=== PATIENT | male | born 1970 | race Caucasian/White ===

== ENCOUNTER → 2018-01-26 | Outpatient (CLI) | payer OTHER ==
[~2018-01-26] MED LIST: BUSP-8 PO; CARI350T28 PO; DIPH-416 PO; LANS30CA12 PO; METO50TA16 PO; NTRGSL/4 UT; PROM12.529 PO; TRAZ100T29 PO; VNTHFA/IN INH
[2018-01-26 10:23] LABS: BASO % 0.3 %; BASO ABS # 0.02 K/uL (0-0.2); EOS % 1.4 %; EOS ABS # 0.11 K/uL (0-0.5); HEMATOCRIT 42.9 % (42-52); HEMOGLOBIN 14.2 g/dL (14.0-18.0); IG# 0.01 K/uL (0.00-0.02); LYMPH % 34.3 %; LYMPH ABS # 2.64 K/uL (1.2-3.4); MEAN CELL VOLUME 93.5 fL (80-100); MEAN CORPUSCULAR HEMOGLOBIN 30.9 pg (25-34); MEAN CORPUSCULAR HGB CONC 33.1 g/dl (32-36); MEAN PLATELET VOLUME 9.9 fL (7.4-10.4); MONO % 6.1 %; MONO ABS # 0.47 K/uL (0.11-0.59); NEUT % 57.8 %; NEUT ABS # 4.44 K/uL (1.4-6.5); PLATELET COUNT 171 K/uL (130-400); RED CELL DISTRIBUTION WIDTH CV 13.4 % (11.5-14.5); WHITE BLOOD COUNT 7.69 K/uL (4.8-10.8)
[2018-01-26 10:30] LABS: BLOOD UREA NITROGEN 16 mg/dl (7-18); CALCIUM 8.6 mg/dl (8.5-10.1); CARBON DIOXIDE 29 mmol/L (21-32); CREATININE 0.95 mg/dl (0.60-1.40); GLUCOSE 110 mg/dl (70-99); POTASSIUM 3.8 mmol/L (3.5-5.1); SODIUM 139 mmol/L (136-145)
[2018-01-26 10:32] LABS: PTT PATIENT 28.6 SECONDS (21.0-31.0)
== END | disposition home or self-care (01) ==
LOC: C.CPL 09:20
PROVIDERS: ATTEND Orthopaedic Surgery
DX: Z01.810 Encounter for preprocedural cardiovascular examination (principal); Z01.812 Encounter for preprocedural laboratory examination

== ENCOUNTER 2019-08-21 04:47 | Inpatient (IN) ==
--- NOTE | 2019-08-04 13:42 | PAT Medication Instructions ---
Medication Instructions Date of Service August 04, 2019 Home Medications Medication Instructions Recorded tramadol 50 mg tablet 50 mg PO BID PRN #30 tab 06/06/19 albuterol sulfate 2 puff INHALATION Q4H PRN carisoprodol 350 mg PO TID PRN lansoprazole 30 mg PO BID metoprolol tartrate 50 mg PO QAM nitroglycerin [Nitrostat] 1 tab SUBLINGUAL UD PRN promethazine 12.5 mg PO Q6H PRN trazodone 200 mg PO HS tramadol 50 mg tablet 50 mg PO BID PRN DO NOT take the morning of surgery carisoprodol 350 mg PO TID PRN Take morning of surgery With a small sip of water, OTHERWISE NOTHING TO EAT OR DRINK AFTER MIDNIGHT: albuterol sulfate 2 puff INHALATION Q4H PRN (if needed, and bring with you to the hospital on the day of surgery) lansoprazole 30 mg PO BID metoprolol tartrate 50 mg PO QAM nitroglycerin [Nitrostat] 1 tab SUBLINGUAL UD PRN (if needed) promethazine 12.5 mg PO Q6H PRN (if needed) tramadol 50 mg tablet 50 mg PO BID PRN (if needed, may be taken up to four hours before surgery) Take evening before surgery albuterol sulfate 2 puff INHALATION Q4H PRN (if needed) carisoprodol 350 mg PO TID PRN (if needed) lansoprazole 30 mg PO BID nitroglycerin [Nitrostat] 1 tab SUBLINGUAL UD PRN (if needed) promethazine 12.5 mg PO Q6H PRN (if needed) trazodone 200 mg PO HS tramadol 50 mg tablet 50 mg PO BID PRN (if needed) Other Notes If you have any questions please call us at [phone] or [phone] or [phone] or [phone]
--- NOTE | 2019-08-07 13:00 | Anesthesiology Consultation ---
Date of Service August 07, 2019 Assessment & Plan (1) Encounter for pre-operative examination: PT REPORTS SIGNIFICANT MYALGIAS WITH PAST SURGERIES, POSSIBLY R/T SUCC. IF SUCC NOT USED, NO MYALGIAS. NEVER FORMALLY TESTED FOR PSEUDOCHOLINESTERASE DEFICIENCY. Chart Review Chart Review: Acceptable Risk for Surgery and Patient seen in Pre Admission Testing Teaching & Discussion Instructed NPO after midnight before surgery, except medications with 15 cc of water. Medication instructions provided according to the PAT guidelines. History Surgery Operation Date: 09/15/19 13:25 Proposed Procedures p Right Total Shoulder Arthroplasty - Adam Orozco, Height/Weight Height: 5 ft 4 in Weight: 113.6 kg Allergies Allergy/AdvReac Type Severity Reaction Status Date / Time mirtazapine AdvReac Severe NIGHTMARE Verified 07/31/19 11:17 NSAIDS (Non-Steroidal AdvReac Severe H/O KIDNEY Verified 07/31/19 11:17 Anti-Inflamma FAILURE quetiapine AdvReac Severe WEIGHT GAIN Verified 07/31/19 11:17 succinylcholine AdvReac Severe MUSCLE PAIN Verified 07/31/19 11:17 Medications Home Medications Medication Instructions Recorded Confirmed Last Taken albuterol sulfate 2 puff INHALATION Q4H PRN #0 01/25/18 07/31/19 Unknown carisoprodol 350 mg PO TID PRN #0 tab 01/25/18 07/31/19 03/03/18 12:00 lansoprazole 30 mg PO BID #0 cap 01/25/18 07/31/19 03/05/18 07:58 metoprolol tartrate 50 mg PO QAM #0 tab 01/25/18 07/31/19 03/05/18 07:58 nitroglycerin [Nitrostat] 1 tab SUBLINGUAL UD PRN #0 btl 01/25/18 07/31/19 Unknown promethazine 12.5 mg PO Q6H PRN #0 tab 01/25/18 07/31/19 03/05/18 07:57 trazodone 200 mg PO HS #0 tab 01/25/18 07/31/19 03/04/18 20:40 tramadol 50 mg tablet 50 mg PO BID PRN #30 tab 06/06/19 07/31/19 Unknown Past Medical History Medical History Anxiety Asthma Possible allergic asthma, has albuterol inhaler for PRN use, only using in summer when allergens present. Barretts esophagus Blindness RIGHT EYE Chronic back pain Chronic kidney disease Nearly normal function since [facility] 2011 Depression Esophageal varices Not documented in hx from GI notes in [facility] GERD (gastroesophageal reflux disease) History of blood transfusion 2/2 hematuria History of hemodialysis With [facility] 7yrs ago History of kidney stones Hx of renal failure 2/2 NSAID abuse, ~ 7 yrs ago. Hyperlipidemia Hypertension Osteoarthritis Peripheral neuropathy LEGS GET NUMBNESS IN LEGS Pre-diabetes Scoliosis Exercise / Class Metabolic Activity II 4-5 Yardwork/Stairs/Walk up hill (Denies CP or SOB with yardwork, 1 FOS, is active at home) Past Family History Family History Other Family history of diabetes mellitus Past Surgical History Surgical History History of anesthesia reaction SUCCICHOLINE->MUSCLE PAIN History of arthroscopy RIGHT KNEE & BILATERAL SHOULDERS History of cardiac cath 2008. Done for angina symptoms. Cath showed normal coronaries with normal LV function. History of cholecystectomy History of colonoscopy History of cystoscopy History of esophagogastroduodenoscopy (EGD) History of left shoulder replacement History of nasal septoplasty Past Anesthesia History No Family Hx of Anesthesia Complications and Pseudocholinesterase Deficiency (POSSIBLE) PT REPORTS SIGNIFICANT MYALGIAS WITH PAST SURGERIES. IF SUC NOT USED, NO MYALGIAS. NEVER FORMALLY TESTED FOR PSEUDOCHOLINESTERASE DEFICIENCY. History of PONV No Hx of PONV and No Hx of Motion Sickness Social History Smoking Status: Never smoker tobacco type: smokeless tobacco (1 can/day x 36 years) Do You Dip or Chew Tobacco: Yes (CHEWS 1 CAN PER DAY - NO CHEWING DOS) Hx Alcohol Use: Yes Alcohol type: beer alcohol intake frequency: a few times a month (if that) Hx Substance Use: No Review of Systems Pt denies any recent chest pain, shortness of breath, palpitations, cough, fever or URI. Physical Exam Vital Signs BP: 109/77 P: 64bpm SPO2: 97% RA T: 97.3 F R: 20 Constitutional + obese ENMT Mouth: + dentures (bottom only), + edentulous and + macroglossia Thyromental Distance: < 3.5 Finger Breadths (3) Mallampati Class: II Neck + short neck, + thick neck and + limited neck extension (reports some pain with full extension) Respiratory normal respiratory effort Auscultation: lungs clear to auscultation bilaterally Cardiovascular Rate/Rhythm: regular rate and regular rhythm Heart Sounds: no murmur Vessels: no carotid bruit Testing Laboratory Results 08/07/19 13:20 08/07/19 13:20 PT 10.2 Seconds (9.0-12.0) 08/07/19 13:20 INR 1.0 (0.9-1.1) 08/07/19 13:20 APTT 26.9 Seconds (21.0-31.0) 08/07/19 13:20 Hemoglobin A1c 5.7 % (4.5-5.6) H 08/07/19 13:20 Blood Type O Positive 08/07/19 13:20 Antibody Screen NEGATIVE 08/07/19 13:20 Electrocardiogram Date: 10/17/18 Findings: + SB @ (55) Low voltage QRS, no significant change from 04/11/17 EKG. Chest X-Ray Date: 08/07/19 Findings: + NAD Cardiac Catheterization Date: 07/24/08 Findings: + normal
--- NOTE | 2019-08-07 13:36 | XRay Report ---
XR chest Pre-admission PA/Lat CLINICAL HISTORY: Preoperative chest COMPARISON STUDY: No previous studies for comparison. FINDINGS: The cardiac and mediastinal contours are normal. There is no evidence of focal pulmonary co nsolidation. There is no evidence of failure. No pleural effusions are visualized.[There is a small b and of subsegmental atelectasis/scarring at the left lung base. There are postsurgical changes of a l eft shoulder arthroplasty IMPRESSION: No active disease in the chest. ACT 112: Negative or not required by law. Electronically signed by: Stef Bui M.D. 08/07/2019 1:35 PM
[2019-08-07 14:12] LABS: Basophils # (auto) 0.03 K/uL (0-0.2); Basophils % (auto) 0.4 %; Eosinophils % (auto) 2.5 %; Hematocrit (blood only) 43.5 % (42-52); Hemoglobin 14.1 g/dL (14.0-18.0); Immature Granulocytes # (auto) 0.02 K/uL (0.00-0.02); Immature Granulocytes % (auto) 0.3 %; Lymphocytes # (auto) 2.44 K/uL (1.2-3.4); Lymphocytes % (auto) 30.5 %; Mean Corpuscular Hemoglobin 31.3 pg (25-34); Mean Corpuscular Hgb Conc 32.4 g/dL (32-36); Mean Corpuscular Volume 96.7 fL (80-100); Mean Platelet Volume 10.3 fL (7.4-10.4); Monocytes # (auto) 0.39 K/uL (0.11-0.59); Monocytes % (auto) 4.9 %; Neutrophils # (auto) 4.92 K/uL (1.4-6.5); Neutrophils % (auto) 61.4 %; Platelet Count 182 K/uL (130-400); RDW Coefficient of Variation 14.1 % (11.5-14.5); RDW Standard Deviation 49.9 fL (36.4-46.3)
[2019-08-07 14:21] LABS: BUN Creatinine Ratio 17.4 (10-20); Calcium 8.5 mg/dl (8.5-10.1); Creatinine Clr Calc Pharmacy 101.5 ml/min; Est GFR (African American) 99.8; Est GFR (Non-African American) 86.1; Estimated Average Glucose 117 mg/dl; Hemoglobin A1C 5.7 % (4.5-5.6); Potassium 4.2 mmol/L (3.5-5.1)
[2019-08-07 14:31] LABS: Partial Thromboplastin Time 26.9 Seconds (21.0-31.0); Prothrombin Time 10.2 Seconds (9.0-12.0)
--- NOTE | 2019-08-17 08:17 | History & Physical Report ---
Date of Service August 17, 2019 Assessment & Plan (1) Osteoarthritis of right shoulder: We will proceed with a right total shoulder arthroplasty. Postoperatively he will be kept overnight in the hospital for postoperative medical management. He plans to use [facility] upon discharge. Present on Admission?: Yes History of Present Illness Chief Complaint: Primary osteoarthritis of the right shoulder Primary Care Provider: Denis Alves MD Abel is a pleasant 49-year-old male who has been dealing with chronic increasing right shoulder pain. I did a left shoulder arthroplasty on him over a year ago. He has done very well with that. Unfortunately he has been dealing with a lot of right shoulder pain. The x-rays do not look too bad, but he does have a history of a right shoulder arthroscopy done by Dr. Garza in the past. I have the intraoperative pictures and they show advanced arthritis of the humeral head. After failing conservative treatment, he has elected to proceed with a right total shoulder arthroplasty. Allergies Allergy/AdvReac Type Severity Reaction Status Date / Time mirtazapine AdvReac Severe NIGHTMARE Verified 07/31/19 11:17 NSAIDS (Non-Steroidal AdvReac Severe H/O KIDNEY Verified 07/31/19 11:17 Anti-Inflamma FAILURE quetiapine AdvReac Severe WEIGHT GAIN Verified 07/31/19 11:17 succinylcholine AdvReac Severe MUSCLE PAIN Verified 07/31/19 11:17 Home Medications Home Medications Medication Instructions Recorded Confirmed Type albuterol sulfate 2 puff INHALATION Q4H PRN #0 01/25/18 07/31/19 History carisoprodol 350 mg PO TID PRN #0 tab 01/25/18 07/31/19 History lansoprazole 30 mg PO BID #0 cap 01/25/18 07/31/19 History metoprolol tartrate 50 mg PO QAM #0 tab 01/25/18 07/31/19 History nitroglycerin [Nitrostat] 1 tab SUBLINGUAL UD PRN #0 btl 01/25/18 07/31/19 History promethazine 12.5 mg PO Q6H PRN #0 tab 01/25/18 07/31/19 History trazodone 200 mg PO HS #0 tab 01/25/18 07/31/19 History tramadol 50 mg tablet 50 mg PO BID PRN #30 tab 06/06/19 07/31/19 Rx Past Med/Surg History Medical History Anxiety Asthma Possible allergic asthma, has albuterol inhaler for PRN use, only using in summer when allergens present. Barretts esophagus Blindness RIGHT EYE Chronic back pain Chronic kidney disease Nearly normal function since [facility] 2011 Depression Esophageal varices Not documented in hx from GI notes in [facility] GERD (gastroesophageal reflux disease) History of blood transfusion 2/2 hematuria History of hemodialysis With [facility] 7yrs ago History of kidney stones Hx of renal failure 2/2 NSAID abuse, ~ 7 yrs ago. Hyperlipidemia Hypertension Osteoarthritis Peripheral neuropathy LEGS GET NUMBNESS IN LEGS Pre-diabetes Scoliosis Surgical History History of anesthesia reaction SUCCICHOLINE->MUSCLE PAIN History of arthroscopy RIGHT KNEE & BILATERAL SHOULDERS History of cardiac cath 2008. Done for angina symptoms. Cath showed normal coronaries with normal LV function. History of cholecystectomy History of colonoscopy History of cystoscopy History of esophagogastroduodenoscopy (EGD) History of left shoulder replacement History of nasal septoplasty Family History Other Family history of diabetes mellitus Social History Preferred Language: Irish Communication Ability: Effective Beliefs That Will Affect Care: None marital status: Single Current Living Situation: Family Feels Safe at Home: Yes Safety Concerns: Feels Safe At This Time Smoking Status: Never smoker Tobacco Type: smokeless tobacco (1 can/day x 36 years) ; Do You Dip or Chew Tobacco: Yes (CHEWS 1 CAN PER DAY - NO CHEWING DOS) ; Second Hand Exposure: No ; Hx Alcohol Use: Yes Alcohol type: beer Hx Substance Use: No Review of Systems All systems reviewed & are unremarkable except as noted in HPI & below Physical Exam Constitutional: WD/WN, vitals as above Eyes: PERRL, conjunctivae normal, anicteric sclerae ENMT: external ear and nose normal, oropharynx normal Neck: trachea midline, no thyromegaly Respiratory: normal respiratory effort Cardiovascular: RRR, no murmur, no edema Gastrointestinal (Abdomen): normal bowel sounds, soft, nontender, no hepatosplenomegaly Musculoskeletal: Physical examination of the right shoulder reveals decreased range of motion and crepitis throughout. There is good strength with full can testing and external rotation. There is tenderness palpation along the anterior glenohumeral joint line. The right upper extremity is neurovascularly intact. Psychiatric: A+Ox3, euthymic affect Results & Data Diagnostic Findings Radiographs of the right shoulder show very minimal osteoarthritis. Intraoperative pictures of the right shoulder do show grade 4 chondral loss on the humeral head.
[2019-08-21] MEDS ORDERED: LR 15ML/HR IV SCH (06:00)
[2019-08-21] MEDS ORDERED: BUPIVACAINE 0.5 % 5 MG/1 ML PF 10ML VIAL ONE (06:18)
[2019-08-21] MEDS ORDERED: PROPOFOL IV EMULSION 10 MG/ML 20 ML VIAL IV ONE (06:36)
[2019-08-21] MEDS ORDERED: ONDANSETRON INJ 2 MG/ML 2 ML VIAL ONE (06:36)
[2019-08-21] MEDS ORDERED: DEXAMETHASONE SOD INJ 4 MG/ML VIAL ONE (06:36)
[2019-08-21] MEDS ORDERED: fentaNYL citrate 100 MCG/2 ML VIAL ONE (06:36)
[2019-08-21] MEDS ORDERED: ROCURONIUM BROMIDE 10 MG/ML 5 ML VIAL ONE (06:36)
[2019-08-21] MEDS ORDERED: LIDOCAINE HCL 2% 2 ML VIAL/AMP(20MG/ML) INFIL ONE (06:36)
[2019-08-21] MEDS ORDERED: MIDAZOLAM HCL 1 MG/ML 2ML VIAL ONE (06:37)
[2019-08-21] MEDS ORDERED: TRANEXAMIC ACID / 0.7% NACL 1,000 MG/100 ML BAG IV STA ×2 (06:38→06:48)
[2019-08-21] MEDS: TRANEXAMIC ACID / 0.7% NACL 1,000 MG/100 ML BAG IV STA ×2 (06:44→08:32)
[2019-08-21] MEDS ORDERED: CEFAZOLIN 2000MG 2,000 MG/15 ML SYR IV SCH (06:45)
--- NOTE | 2019-08-21 06:45 | History & Physical Bridge Note ---
Date of Service August 21, 2019 History & Physical Bridge Note I have examined the patient, reviewed the History & Physical and in the interval since the performance of the History & Physical I have noted the following changes of clinical significance: no changes noted
[2019-08-21] MEDS ORDERED: ONDANSETRON INJ 2 MG/ML 2 ML VIAL IV PRN ×2 (06:53→10:24)
[2019-08-21] MEDS ORDERED: ePHEDrine sulfate 50 MG/ML AMP IV PRN (06:53)
[2019-08-21] MEDS ORDERED: ATROPINE SULFATE 0.1 MG/ML 10ML SYR IV PRN (06:53)
[2019-08-21] MEDS ORDERED: NEOSTIGMINE METHYLSULFATE 5 MG/5 ML SYR ONE (07:45)
[2019-08-21] MEDS ORDERED: GLYCOPYRROLATE 0.2 MG/ML VIAL ONE (07:45)
--- NOTE | 2019-08-21 08:52 | Operative Report ---
PG Post Operative Report Pre & Post Diagnosis Operation Date: 08/21/19 07:15 Pre-Op Diagnosis: RIGHT SHOULDER DEGENERATIVE JOINT DISEASE with long head of biceps tendinopathy Post-Op Diagnosis: RIGHT SHOULDER DEGENERATIVE JOINT DISEASE with long head of biceps tendinopathy I identified the patient and participated in the time-out.: Yes Procedure Operation Date: 08/21/19 07:15 Actual Procedures p Right Total Shoulder Arthroplasty with open biceps tenodesis of the long head of the biceps tendon as a separate procedure (modifier 59) (Right) - Adam Orozco DO Surgeon Adam Orozco, [employer] Adam Tobias PAC Estimated Blood Loss 300 Findings Consistent with Post-Op Diagnosis Specimens Right humeral head Complications none Disposition Disposition: Recovery Room Indications Abel is a pleasant 49-year-old male who is been dealing with chronic increasing right shoulder pain. I did a left shoulder replacement on him several years ago and he did very well with that. Unfortunate is been having a lot of right shoulder pain. He had an arthroscopy done at an outside institution several years ago. He had the arthroscopic images with him and it showed advanced arthritis of the humeral head. The x-rays did not look too bad. After failing conservative treatment, he elected to proceed with a right total shoulder arthroplasty. Description of Procedure A CPT code modifier 59: The long head of the biceps tendon was enlarged and inflamed consistent with tendinopathy. A tenodesis was opted. This was a separate and distinct portion of the procedure. For these reasons, a CPT code modifier 59 will be added to this case. Implants used: I used a Biomet Comprehensive total shoulder arthroplasty system with a size 11 press fit mini humeral stem, a size 46 x 18 eccentric humeral head, and a medium size glenoid with a Regenerex peg. The glenoid was cemented in place with Palacos G cement. Abel arrived at [facility] for the above procedure. He was seen in the preoperative holding area and the operative extremity was identified and signed. He was given a preoperative antibiotic, TXA, and an interscalene nerve block. He was taken back to the operating room, laid on table in supine position, and put under general anesthesia. He was then put into the beachchair position. The shoulder was then prepped and draped in sterile fashion. A timeout was done and the patient and the operative extremity was properly identified. A deltopectoral approach was used. Dissection was taken down through the fascia and the deltoid was retracted laterally and the conjoined tendon was retracted medially. The anterior shoulder was exposed. The biceps groove was opened up and the biceps tendon was examined extensively. The biceps tendon demonstrated enlargement and inflammatory changes consistent with longstanding inflammation in the context of osteoarthritis. The long head of the biceps tendon was then tenodesed to the upper border of the pectoralis major. This was a separate and distinct portion of the procedure. The subscapularis was then released off the lesser tuberosity with a centimeter of cuff tissue remaining. The inferior capsule was released and the humeral head was dislocated. The rotator cuff was inspected and intact. A canal finding reamer was sent down the center of the humeral canal. Sequential reaming up to a size 11 reamer was done. Offset reamer a proximal humeral resection guide was placed. The proximal humerus was resected at 135 of inclination and 30 of retroversion. Inferior osteophytes were then removed and the glenoid was exposed. Time was spent doing an appropriate labral release. The glenoid measured to be a size medium. A 3.2 mm Steinmann pin was placed in the central hole of the glenoid vault pin guide. The glenoid was then reamed with a propeller reamer. The central post cutter was then used to prepare for the central boss. The cannulated peripheral peg drill guide was then placed and 3 peg holes were drilled. The final size medium glenoid was then cemented in place with Palacos G cement. Once cement had dried the proximal humerus was once again exposed. Sequential broaching of the humerus up to a size 11 broach was done. Off that broach a size 46 x 18 eccentric humeral head was trialed. The shoulder was then reduced, brought through a full range of motion, and felt to be stable. The shoulder was then dislocated and the broach was removed. The final size 11 mini humeral stem implant was then impacted into place. A size 46 x 18 eccentric humeral head was then impacted onto the humeral stem. The shoulder was then reduced and once again brought through a full range of motion and felt to be stable. The subscapularis was then tenodesed back to the lesser tuberosity with transosseous FiberWire sutures and side to side sutures with the arm in 45 of external rotation. 2 sutures were placed in the lateral rotator interval. A dilute betadyne lavage was then done for 3 minutes. The joint was then irrigated with normal saline solution. Hemostasis was obtained. The interval was closed with 2-0 Vicryl suture. The skin was closed with 2-0 Vicryl and elvia. A soft dressing was placed and the arm was rested in a regular arm sling. He was then extubated and transferred to a hospital bed. He was taken to the postanesthesia care unit in stable condition. He tolerated the procedure well. Adam Tobias PA-C, was present for the entire procedure. He was critical for patient positioning, prepping, draping, retraction exposure, wound closure and application of sterile dressing. I attest to the content of the Intraoperative Record and any orders documented therein. Any exceptions are noted below.
[2019-08-21] MEDS: fentaNYL citrate 100 MCG/2 ML VIAL IV PRN ×4 (09:18→09:33)
--- NOTE | 2019-08-21 09:51 | Anesthesiology Progress Note ---
Date of Service August 21, 2019 Anesthesia Post Procedure Vital Signs Vital Signs: Temp Pulse Pulse Resp BP Pulse Ox 08/21/19 09:40 71 18 113/65 92 08/21/19 09:30 77 18 116/74 94 08/21/19 09:20 81 18 120/79 94 08/21/19 09:13 97.0 F L 82 18 122/81 91 08/21/19 05:32 97.7 F 80 20 134/83 95 Transfer of Care Handoff Completed per policy Notes Mental Status: alert / awake / arousable and participated in evaluation Patient Amnestic to Procedure: Yes Nausea / Vomiting: adequately controlled Pain: adequately controlled Airway Patency, RR, SpO2: stable & adequate BP & HR: stable & adequate Hydration State: stable & adequate Anesthetic Complications: no major complications apparent and Pt Satisfied with anesthetic care
[2019-08-21] MEDS ORDERED: bisacodyL 10 MG SUPP PR PRN (10:24)
[2019-08-21] MEDS ORDERED: NALOXONE HCL 0.4 MG/1 ML VIAL/CARP IV PRN (10:24)
[2019-08-21] MEDS ORDERED: METOCLOPRAMIDE HCL INJ 5 MG/ML 2 ML VIAL IV PRN (10:24)
[2019-08-21] MEDS ORDERED: MAGNESIUM HYDROXIDE SUSP 30 ML UDC PO PRN (10:24)
[2019-08-21] MEDS ORDERED: CARISOPRODOL 350 MG TABLET PO PRN (10:24)
[2019-08-21] MEDS ORDERED: ALBUTEROL HFA 8 GM INHALER INH PRN (10:24)
[2019-08-21] MEDS ORDERED: NITROGLYCERIN SL 0.4 MG/TAB TAB SL PRN (10:24)
[2019-08-21] MEDS ORDERED: HYDROmorphone INJ 0.5 MG/0.5 ML SYR IV PRN (10:24)
[2019-08-21] MEDS: SODIUM CHLORIDE 0.9% 1000ML 1,000 ML IV SCH ×2 (11:25→19:57)
[2019-08-21] MEDS: ACETAMINOPHEN 500 MG TAB PO SCH ×2 (13:17→22:27)
--- NOTE | 2019-08-21 14:04 | XRay Report ---
XR shoulder RT min 2V routine HISTORY: 49 years-old Male Post shoulder surgery right shoulder total joint arthroplasty COMPARISON: Chest radiograph 08/07/2019 TECHNIQUE: 2 views the right shoulder FINDINGS: Right shoulder total joint arthroplasty with expected postsurgical soft tissue swelling and deep tiss ue air. Overlying skin elvia are noted. No acute fracture or retained foreign body. Right lung base densities suggest atelectasis. IMPRESSION: Right shoulder arthroplasty with expected postoperative findings. ACT 112: Negative or not required by law. The above report was generated using voice recognition software. It may contain grammatical, syntax o r spelling errors. Electronically signed by: Miguel Butler M.D. 08/21/2019 2:03 PM
[2019-08-21] MEDS: CEFAZOLIN 2000MG 2,000 MG/15 ML SYR IV SCH ×2 (14:52→22:26)
[2019-08-21] MEDS: PROMETHAZINE HCL 25 MG TAB PO PRN (17:59)
[2019-08-21] MEDS: PANTOprazole 40 MG TAB PO SCH (19:59)
[2019-08-21] MEDS: DOCUSATE SODIUM 100 MG CAP PO SCH (20:03)
[2019-08-21] MEDS: OXYCODONE HCL IR 5 MG TAB (IMMEDIATE RELEASE) PO PRN (20:09)
[2019-08-21] MEDS ORDERED: SENNA 8.6 MG TAB PO SCH (21:00)
[2019-08-22] MEDS: ACETAMINOPHEN 500 MG TAB PO SCH (05:14)
[2019-08-22] MEDS: OXYCODONE HCL IR 5 MG TAB (IMMEDIATE RELEASE) PO PRN ×2 (05:20→10:14)
--- NOTE | 2019-08-22 06:01 | Orthopedic Progress Note ---
Date of Service August 22, 2019 Assessment & Plan (1) History of right shoulder replacement: Overall he is doing fairly well. He is not having too much pain in the right shoulder. He will be seen by physical therapy this morning for ambulation and range of motion exercises. He can be discharged to home later today. He will follow-up with orthopedics in 2 weeks. Present on Admission?: Yes Subjective Abel was seen and examined at bedside this morning. Overall is doing very well. Is not having much pain in the right shoulder. He has no complaints. Physical Exam Musculoskeletal: On physical examination of the right shoulder, the dressing is clean and dry. He is wearing a sling as instructed. His radial, median, and ulnar nerves are checked and intact at his wrist. His axillary nerve was not checked yet. Results & Data ([facility]) Vital Signs (Past 12 Hours) Vital Signs Temp Pulse Pulse Resp BP Pulse Ox 08/22/19 03:15 36.6 C 92 H 18 116/77 92 08/21/19 23:00 36.6 C 92 H 18 121/82 91 08/21/19 19:13 36.4 C L 92 H 16 106/74 91 Diagnostic Findings Postoperative x-rays of the right shoulder show the prosthesis to be in anatomic alignment without any evidence of fracture, dislocation, or loosening. PG Care Time/CCT Total # of Minutes Spent Total Time Spent with Patient: Total time spent is greater than 50% in coordination of care (as documented) at patient's floor/unit and/or counseling patient: Coding Level of Care Code None Diagnoses History of right shoulder replacement Z96.611
--- NOTE | 2019-08-22 06:02 | Discharge Summary ---
Date of Service August 22, 2019 Admission HPI Per Admitting Provider Abel is a pleasant 49-year-old male who has been dealing with chronic increasing right shoulder pain. I did a left shoulder arthroplasty on him over a year ago. He has done very well with that. Unfortunately he has been dealing with a lot of right shoulder pain. The x-rays do not look too bad, but he does have a history of a right shoulder arthroscopy done by Dr. Garza in the past. I have the intraoperative pictures and they show advanced arthritis of the humeral head. After failing conservative treatment, he has elected to proceed with a right total shoulder arthroplasty. Principal Diagnosis Right total shoulder arthroplasty Discharge Data Allergies Allergy/AdvReac Type Severity Reaction Status Date / Time mirtazapine AdvReac Severe NIGHTMARE Verified 08/21/19 05:41 NSAIDS (Non-Steroidal AdvReac Severe H/O KIDNEY Verified 08/21/19 05:41 Anti-Inflamma FAILURE quetiapine AdvReac Severe WEIGHT GAIN Verified 08/21/19 05:41 succinylcholine AdvReac Severe MUSCLE PAIN Verified 08/21/19 05:41 Consultations 08/21/19 10:24 Consult Case Management - Discharge Planning Routine Procedures Performed Operation Date: 08/21/19 07:15 Actual Procedures p Right Total Shoulder Arthroplasty(Right) - Adam Orozco DO Ordered Studies 08/21/19 05:00 US - OR guided needle [facility] Urgent Hospital Course (1) History of right shoulder replacement: On August 21, 2019 Abel arrived at [facility] and underwent a right total shoulder arthroplasty without complication. He had a general anesthetic and a right interscalene nerve block. Postoperatively he was placed in a sling and transferred to the general orthopedic floors. His hospital course was uneventful. On postop day #1 his H&H was stable and his pain was well controlled. He was able to participate well with physical therapy doing ambulation and range of motion exercises. He was then discharged home. He will follow-up with orthopedics in 2 weeks. Total Time Total Time Spent Total Time Spent (In Minutes): 20 Discharge Plan Discharge Items Patient Disposition: Home - Home Health Services Reason For Visit: RIGHT SHOULDER DEGENERATIVE JOINT DISEASE Discharge Diagnosis: History of right shoulder replacement Activity: As commented below Non-emergency contact: Surgeon Call non-emergency contact if: your wound has increased redness and your wound has increased drainage Follow-up/Referrals: Denis Alves MD [Primary Care Provider] - Diet: Regular Addtl Attending Provider Instructions: Activity and Therapy Recommendations: * If you are using [facility] then therapy will be provided at your home until they feel you have accomplished all of your goals. * If you are using [facility] then Physical Therapy will be provided until they feel you are ready to start Outpatient Physical Therapy. * If you are not using home therapy then Outpatient Physical Therapy should start about 3-5 days from your day of surgery. Therapy will last about 8-12 weeks * Wear your sling for 3 weeks, unless otherwise instructed. You may remove your sling to shower and to dress, but otherwise, you should be in your sling at all times, including while sleeping * The shoulder replacement is very stable and you can use your hand while in the sling * You were shown a series of exercises in the hospital. Do these exercises daily including the exercises you were shown in physical therapy. Medications: * Narcotic You will likely be sent home from the hospital with a prescription for the narcotic pain medication that worked best throughout your stay. * Other medications may be prescribed for specific circumstances. If you have any questions, please call the office at . * Resume previous home medications unless otherwise instructed Dressing Care: Leave the plastic dressing in place for 5 days. After 5 days you may remove the plastic dressing. If the incision is not draining then you may leave the elvia open to air. If there is a little bit of drainage or if the elvia are getting stuck on your clothing then cover the incision with a dry dressing. The elvia will be removed at your 2 week follow-up appointment. Showering: You may shower with the plastic dressing in place. Let the shower spray hit the other shoulder. You can pat the plastic dry. If the dressing becomes wet underneath the plastic then simply remove the dressing. Keep the incision dry until you are 5 days out from the day of surgery. At that time you can shower with the elvia exposed. Let the soapy shower water run over the elvia and pat them dry. Do not scrub or soak the incision. Things To Watch For: * Drainage from the incision site that occurs more than one week after your consuelo verenice. * Increased redness at the incision site. * Fever above 102 degrees Fahrenheit. * Unusual chest pain or shortness of breath. * Call [facility] at with any of the above problems Follow-Up Visit: Follow-up with Dr. Orozco 2-3 weeks after your day of surgery. An appointment was probably scheduled when you signed-up for surgery in the office. If you have any questions call Office Instructions: More detailed instructions as well as Frequently Asked Questions were provided in a folder by our office when you signed-up for surgery. Please review these instructions when you get home. If you have any further questions or concerns, please feel free to call the office at [phone] Pending Studies at Discharge: No Stand-Alone Forms: My [facility], Smoking Cessation Medications and DC Order Prescriptions: New oxycodone 5 mg tablet 5 mg PO Q6H PRN (Reason: pain) Qty: 30 RF: 0 Continued carisoprodol 350 mg Tablet 350 mg PO TID PRN (Reason: MUSCLE SPASMS) Qty: 0 RF: 0 promethazine 12.5 mg Tablet 12.5 mg PO Q6H PRN (Reason: Nausea And Vomiting) Qty: 0 RF: 0 trazodone 100 mg Tablet 200 mg PO HS Qty: 0 RF: 0 lansoprazole 30 mg Capsule,Delayed Release(Dr/Ec) 30 mg PO BID Qty: 0 RF: 0 metoprolol tartrate 50 mg Tablet 50 mg PO QAM Qty: 0 RF: 0 nitroglycerin [Nitrostat] 0.4 mg Tablet, Sublingual 1 tab Sublingual UD PRN (Reason: Chest Pain) Qty: 0 RF: 0 albuterol sulfate 90 mcg/actuation Hfa Aerosol Inhaler 2 puff INHALATION Q4H PRN (Reason: SOB) Qty: 0 RF: 0 Discontinued tramadol 50 mg tablet 50 mg PO BID PRN (Reason: pain) Qty: 30 RF: 0 Discharge Orders: Discharge Order (Routine); Ordered 08/22/19 Ordered By: Adam Orozco Admission Data Admit Date/Time: 08/21/19 09:14 Attending Provider: Adam Orozco Admit Provider: Adam Orozco Primary Care Provider: Denis Alves I. Coding Level of Care Code D/C Day Management <30 mins Diagnoses History of right shoulder replacement Z96.611
[2019-08-22] MEDS: PROMETHAZINE HCL 25 MG TAB PO PRN (06:10)
[2019-08-22 07:02] LABS: Basophils # (auto) 0.01 K/uL (0-0.2); Basophils % (auto) 0.1 %; Eosinophils # (auto) 0.03 K/uL (0-0.5); Eosinophils % (auto) 0.3 %; Hematocrit (blood only) 41.3 % (42-52); Hemoglobin 13.8 g/dL (14.0-18.0); Immature Granulocytes # (auto) 0.03 K/uL (0.00-0.02); Immature Granulocytes % (auto) 0.3 %; Lymphocytes # (auto) 2.13 K/uL (1.2-3.4); Lymphocytes % (auto) 17.8 %; Mean Corpuscular Hemoglobin 31.4 pg (25-34); Mean Corpuscular Hgb Conc 33.4 g/dL (32-36); Mean Corpuscular Volume 93.9 fL (80-100); Mean Platelet Volume 10.1 fL (7.4-10.4); Monocytes % (auto) 8.3 %; Neutrophils # (auto) 8.78 K/uL (1.4-6.5); Neutrophils % (auto) 73.2 %; Platelet Count 198 K/uL (130-400); RDW Coefficient of Variation 13.8 % (11.5-14.5); RDW Standard Deviation 47.5 fL (36.4-46.3); White Blood Count 11.98 K/uL (4.8-10.8)
[2019-08-22 07:36] LABS: BUN Creatinine Ratio 13.4 (10-20); Est GFR (African American) 102.2; Est GFR (Non-African American) 88.2; Potassium 3.5 mmol/L (3.5-5.1)
[2019-08-22] MEDS ORDERED: dexAMETHasone 4 MG TAB PO SCH (08:00)
[2019-08-22] MEDS: PANTOprazole 40 MG TAB PO SCH (08:03)
[2019-08-22] MEDS: DOCUSATE SODIUM 100 MG CAP PO SCH (08:04)
--- NOTE | 2019-08-22 08:07 | Anesthesiology Progress Note ---
Date of Service August 22, 2019 Anesthesia Post Procedure Vital Signs Vital Signs: Temp Pulse Pulse Pulse Resp BP Pulse Ox 08/22/19 07:43 36.7 C 97 H 18 110/80 93 08/22/19 03:15 36.6 C 92 H 18 116/77 92 08/21/19 23:00 36.6 C 92 H 18 121/82 91 08/21/19 19:13 36.4 C L 92 H 16 106/74 91 08/21/19 15:52 36.5 C 88 16 113/80 94 08/21/19 13:04 36.4 C L 78 18 118/79 93 08/21/19 12:00 85 18 113/79 93 08/21/19 11:10 75 18 113/77 93 08/21/19 10:35 71 18 112/73 91 08/21/19 10:10 36.4 C L 77 117/76 4 L 08/21/19 09:51 36.2 C L 78 18 121/74 92 08/21/19 09:40 71 18 113/65 92 08/21/19 09:30 77 18 116/74 94 08/21/19 09:20 81 18 120/79 94 08/21/19 09:13 36.1 C L 82 18 122/81 91 Pain Intensity Right Shoulder: Pain Intensity: 0 Notes Mental Status: alert / awake / arousable and participated in evaluation Patient Amnestic to Procedure: Yes Nausea / Vomiting: adequately controlled Pain: adequately controlled Airway Patency, RR, SpO2: stable & adequate BP & HR: stable & adequate Hydration State: stable & adequate Anesthetic Complications: no major complications apparent and Pt Satisfied with anesthetic care
[2019-08-22] MEDS ORDERED: METOPROLOL TARTRATE 50 MG TAB PO SCH (09:00)
[2019-08-22] MEDS ORDERED: MULTIVITAMIN TAB PO SCH (09:00)
== END 2019-08-22 10:27 | disposition home health service (06) | DRG 483 ==
LOC: ASU 04:47 → 3E 09:14

== ENCOUNTER 2020-11-12 08:40 | Inpatient (IN) ==
--- NOTE | 2020-11-04 08:39 | PAT Medication Instructions ---
Medication Instructions Date of Service November 04, 2020 Home Medications Medication Instructions Recorded oxycodone-acetaminophen 5 mg-325 1 tab PO Q6H PRN #60 tab 10/29/ mg tablet albuterol sulfate 2 puff INHALATION Q4H PRN carisoprodol 350 mg PO TID PRN lansoprazole 30 mg PO BID metoprolol tartrate 50 mg PO QAM nitroglycerin [Nitrostat] 1 tab SUBLINGUAL UD PRN promethazine 12.5 mg PO Q6H PRN trazodone 200 mg PO HS oxycodone-acetaminophen 5 mg-325 mg tablet 1 tab PO Q6H PRN Continue as directed nitroglycerin [Nitrostat] 1 tab SUBLINGUAL UD PRN (if needed) DO NOT take the morning of surgery carisoprodol 350 mg PO TID PRN Take morning of surgery With a small sip of water, OTHERWISE NOTHING TO EAT OR DRINK AFTER MIDNIGHT: albuterol sulfate 2 puff INHALATION Q4H PRN (use if needed; please bring rescue inhaler with you to hospital day of surgery if possible) lansoprazole 30 mg PO BID metoprolol tartrate 50 mg PO QAM promethazine 12.5 mg PO Q6H PRN (if needed) oxycodone-acetaminophen 5 mg-325 mg tablet 1 tab PO Q6H PRN (okay to take up to 4 hours prior to surgery if needed) Take evening before surgery albuterol sulfate 2 puff INHALATION Q4H PRN (if needed) carisoprodol 350 mg PO TID PRN (if needed) lansoprazole 30 mg PO BID promethazine 12.5 mg PO Q6H PRN (if needed) trazodone 200 mg PO HS oxycodone-acetaminophen 5 mg-325 mg tablet 1 tab PO Q6H PRN (if needed) Other Notes If you have any questions please call us at [phone] or [phone] or [phone] or [phone]
--- NOTE | 2020-11-05 08:51 | Anesthesiology Consultation ---
Date of Service November 05, 2020 Assessment & Plan (1) Encounter for pre-operative examination: - COVID screening: Per assessment on 11/05: Travel screen negative, no known COVID-19 positive contacts or current COVID-19 related symptoms. Surgeon arranging preop COVID testing (scheduled 11/08; [place]). Awaiting results. - Succinylcholine reaction: Patient reports significant post-op mylagias with past surgeries, specifically remote shoulder shoulder. He was told that it was reaction to succinylcholine which has now been avoided for subsequent surgeries/anesthesia. He has not had similar issues with subsequent surgeries/anesthesia when succinylcholine avoided. No formal pseudocholinesterase deficiency testing. Chart Review Chart Review: Acceptable Risk for Surgery and Patient seen in Pre Admission Testing Teaching & Discussion Pre-Anesthesia Teaching/Discussion Notes: Instructed NPO after midnight before surgery,except medications with 15 cc of water. Medication instructions provided according to the PAT guidelines. History Surgery Operation Date: 11/12/20 11:10 Proposed Procedures p Revision Right Total Shoulder Arthroplasty to Right Reverse Total Shoulder Arthroplasty - Adam Orozco DO Height/Weight Height: 5 ft 5 in Weight: 110.1 kg Allergies Allergy/AdvReac Type Severity Reaction Status Date / Time succinylcholine Allergy Severe Muscle pain Verified 11/05/20 09:28 mirtazapine AdvReac Severe Nightmares Verified 11/05/20 09:28 NSAIDS (Non-Steroidal AdvReac Severe Hx BRITTANY Verified 11/05/20 09:28 Anti-Inflamma quetiapine AdvReac Severe Weight gain Verified 11/05/20 09:28 Medications Home Medications Medication Instructions Recorded Confirmed Last Taken albuterol sulfate 2 puff INHALATION Q4H PRN #0 01/25/18 10/31/20 08/20/19 09:00 carisoprodol 350 mg PO TID PRN #0 tab 01/25/18 10/31/20 08/20/19 12:00 lansoprazole 30 mg PO BID #0 cap 01/25/18 10/31/20 08/20/19 22:00 metoprolol tartrate 50 mg PO QAM #0 tab 01/25/18 10/31/20 08/20/19 09:00 nitroglycerin [Nitrostat] 1 tab SUBLINGUAL UD PRN #0 btl 01/25/18 10/31/20 Unknown promethazine 12.5 mg PO Q6H PRN #0 tab 01/25/18 10/31/20 08/20/19 00:00 trazodone 200 mg PO HS #0 tab 01/25/18 10/31/20 08/20/19 22:00 oxycodone-acetaminophen 5 mg-325 1 tab PO Q6H PRN #60 tab 10/29/20 10/31/20 Unknown mg tablet Past Medical History Medical History Anxiety Asthma Controlled Barretts esophagus Blindness Right eye Chronic back pain Depression GERD (gastroesophageal reflux disease) controlled History of blood transfusion 2/2 hematuria History of kidney injury BRITTANY (2011) in setting of NSAID use, was on hemodialysis for short period of time > kidney function recovered/no recent issues History of kidney stones Hyperlipidemia Hypertension Morbid obesity with BMI of 40.0-44.9, adult Osteoarthritis Peripheral neuropathy B/L LE Pre-diabetes Scoliosis Exercise / Class Metabolic Activity III < 4 Walking/Shop/Light housework (one flight of stairs (no chest pain, occasional SOB)) Past Family History Family History Other Family history of diabetes mellitus Past Surgical History Surgical History (Updated 11/05/20 @ 12:56 by Tiki Ruiz) History of anesthesia reaction Succinylcholine reaction> Patient reports significant mylagias with past surgeries, specifically remote shoulder shoulder. He was told that it was reaction to succinylcholine which has now been avoided for subsequent surgeries/anesthesia. He has not had similar issues with subsequent surg eries/anesthesia when succinylcholine avoided. History of arthroscopy R/L shoulders, right knee History of cardiac cath 2008 > Done for angina symptoms/cath showed normal coronaries with normal LV function History of cholecystectomy History of colonoscopy History of cystoscopy History of esophagogastroduodenoscopy (EGD) History of left shoulder replacement History of nasal septoplasty History of non-cataract eye surgery History of right shoulder replacement Right TSA (08/21/19): [place] + [place] at [facility] Past Anesthesia History No Family Hx of Anesthesia Complications Succinylcholine reaction > Patient reports significant mylagias with past surgeries, specifically remote shoulder shoulder. He was told that it was reaction to succinylcholine which has now been avoided for subsequent surgeries/anesthesia. He has not had similar issues with subsequent surgeries/anesthesia when succinylcholine avoided. History of PONV No Hx of PONV and No Hx of Motion Sickness Social History Smoking Status: Never smoker tobacco type: smokeless tobacco Do You Dip or Chew Tobacco: Yes (1 can/day x 36 years- advised none DOS) Hx Alcohol Use: No Hx Substance Use: No substance use type: does not use Review of Systems Patient denies chest pain, shortness of breath, fever, chills, cough, wheezing, palpitations. Physical Exam Vital Signs VITALS BP 124/84 P 67 TEMP 97.8 SP02 95%RA RESP 16 PHYSICAL Full cervical extension range of motion. Full TMJ range of motion. TMD 4 finger breaths Mallampati Score 2 Dentition: upper/lower full dentures Lungs: clear throughout to auscultation Cardiac: regular rate and rhythm, no murmurs noted Spine: normal Carotid arteries: negative bruit Extremities: no edema Thick neck Testing Laboratory Results 11/05/20 09:05 11/05/20 09:05 PT 10.3 Seconds (9.0-12.0) 11/05/20 09:05 INR 1.0 (0.9-1.1) 11/05/20 09:05 APTT 27.6 Seconds (21.0-31.0) 11/05/20 09:05 Blood Type O Positive 11/05/20 09:05 Antibody Screen NEGATIVE 11/05/20 09:05 Electrocardiogram Date: 11/05/20 Normal sinus rhythm at 65 bpm. Rightward axis. Chest X-Ray Date: 11/05/20 FINDINGS: Cardiac silhouette is upper limits of normal in size. Mild right hemidiaphragmatic elevation. No pneumothorax, pleural effusion, airspace consolidation or overt pulmonary edema. Mild linear scarring/atelectasis of the left lung base is unchanged. Degenerative changes of the spine. Bilateral shoulder total joint arthroplasties. IMPRESSION: No acute process.
--- NOTE | 2020-11-05 09:37 | XRay Report ---
XR chest Pre-admission PA/Lat HISTORY: 50 years-old Male pat chronic degenerative joint disease COMPARISON: Chest radiograph 08/07/2019 TECHNIQUE: PA and lateral views of the chest FINDINGS: Cardiac silhouette is upper limits of normal in size. Mild right hemidiaphragmatic elevation. No pneu mothorax, pleural effusion, airspace consolidation or overt pulmonary edema. Mild linear scarring/ate lectasis of the left lung base is unchanged. Degenerative changes of the spine. Bilateral shoulder to remington joint arthroplasties. IMPRESSION: No acute process. ACT 112: Negative or not required by law. The above report was generated using voice recognition software. It may contain grammatical, syntax o r spelling errors. Electronically signed by: Ray Butler M.D. 11/05/2020 9:35 AM
[2020-11-05 10:47] LABS: Basophils # (auto) 0.02 K/uL (0-0.2); Basophils % (auto) 0.3 %; Eosinophils # (auto) 0.18 K/uL (0-0.5); Eosinophils % (auto) 2.8 %; Hematocrit (blood only) 41.7 % (42-52); Hemoglobin 13.9 g/dL (14.0-18.0); Immature Granulocytes # (auto) 0.01 K/uL (0.00-0.02); Immature Granulocytes % (auto) 0.2 %; Lymphocytes # (auto) 2.35 K/uL (1.2-3.4); Lymphocytes % (auto) 36.4 %; Mean Corpuscular Hemoglobin 31.4 pg (25-34); Mean Corpuscular Hgb Conc 33.3 g/dL (32-36); Mean Corpuscular Volume 94.3 fL (80-100); Mean Platelet Volume 10.3 fL (7.4-10.4); Monocytes # (auto) 0.42 K/uL (0.11-0.59); Monocytes % (auto) 6.5 %; Neutrophils # (auto) 3.48 K/uL (1.4-6.5); Neutrophils % (auto) 53.8 %; Platelet Count 186 K/uL (130-400); RDW Coefficient of Variation 13.4 % (11.5-14.5); RDW Standard Deviation 46.3 fL (36.4-46.3); Red Blood Count 4.42 M/uL (4.7-6.1); White Blood Count 6.46 K/uL (4.8-10.8)
[2020-11-05 11:06] LABS: Partial Thromboplastin Time 27.6 Seconds (21.0-31.0); Prothrombin Time 10.3 Seconds (9.0-12.0)
--- NOTE | 2020-11-05 12:07 | Electrocardiogram Report ---
Test Reason : Blood Pressure : / mmHG Vent. Rate : 065 BPM Atrial Rate : 065 BPM P-R Int : 166 ms QRS Dur : 080 ms QT Int : 406 ms P-R-T Axes : 064 090 043 degrees QTc Int : 422 ms Normal sinus rhythm Rightward axis Borderline ECG No previous ECGs available Confirmed by Darnell Rosales ([id number]) on 11/05/2020 12:06:49 PM Referred By: Adam Orozco Confirmed By:Edgar Rosales
[2020-11-05 12:17] LABS: BUN Creatinine Ratio 17.6 (10-20); Calcium 8.8 mg/dl (8.5-10.1); Creatinine Clr Calc Pharmacy 107.7 ml/min; Est GFR (African American) 107.9 ml/min; Est GFR (Non-African American) 93.1 ml/min
--- NOTE | 2020-11-07 13:08 | History & Physical Report ---
Date of Service November 07, 2020 Assessment & Plan (1) Rotator cuff tear, right: We will proceed with a revision of his right shoulder with conversion to a reverse shoulder replacement. Postoperatively he will be placed in a sling and kept overnight in the hospital for postoperative medical management. He plans to use [facility] upon discharge. History of Present Illness Chief Complaint: Subscapularis tear following total shoulder arthroplasty. Primary Care Provider: Denis Alves MD Abel is a 50-year-old male who underwent a right total shoulder arthroplasty in August 2019. He initially did well postoperatively. Unfortunately he has been struggling more more lately. Follow-up x-rays of the right shoulder do show ful l anterior subluxation of the humeral head on the glenoid. It is fairly obvious he has a large retracted subscapularis tear. After failing extensive conservative treatment, he has elected proceed with a revision to a right reverse shoulder arthroplasty.. Allergies Allergy/AdvReac Type Severity Reaction Status Date / Time succinylcholine Allergy Severe Muscle pain Verified 11/05/20 09:28 mirtazapine AdvReac Severe Nightmares Verified 11/05/20 09:28 NSAIDS (Non-Steroidal AdvReac Severe Hx BRITTANY Verified 11/05/20 09:28 Anti-Inflamma quetiapine AdvReac Severe Weight gain Verified 11/05/20 09:28 Home Medications Medication Instructions Recorded Confirmed Type albuterol sulfate 2 puff INHALATION Q4H PRN #0 01/25/18 10/31/20 History carisoprodol 350 mg PO TID PRN #0 tab 01/25/18 10/31/20 History lansoprazole 30 mg PO BID #0 cap 01/25/18 10/31/20 History metoprolol tartrate 50 mg PO QAM #0 tab 01/25/18 10/31/20 History nitroglycerin [Nitrostat] 1 tab SUBLINGUAL UD PRN #0 btl 01/25/18 10/31/20 History promethazine 12.5 mg PO Q6H PRN #0 tab 01/25/18 10/31/20 History trazodone 200 mg PO HS #0 tab 01/25/18 10/31/20 History oxycodone-acetaminophen 5 mg-325 1 tab PO Q6H PRN #60 tab 10/29/20 10/31/20 Rx mg tablet Past Med/Surg History Medical History Anxiety Asthma Controlled Barretts esophagus Blindness Right eye Chronic back pain Depression GERD (gastroesophageal reflux disease) controlled History of blood transfusion 2/2 hematuria History of kidney injury BRITTANY (2011) in setting of NSAID use, was on hemodialysis for short period of time > kidney function recovered/no recent issues History of kidney stones Hyperlipidemia Hypertension Morbid obesity with BMI of 40.0-44.9, adult Osteoarthritis Peripheral neuropathy B/L LE Pre-diabetes Scoliosis Surgical History History of anesthesia reaction Succinylcholine reaction> Patient reports significant mylagias with past surgeries, specifically remote shoulder shoulder. He was told that it was reaction to succinylcholine which has now been avoided for subsequent surgeries/anesthesia. He has not had similar issues with subsequent surgeries/anesthesia when succinylcholine avoided. History of arthroscopy R/L shoulders, right knee History of cardiac cath 2008 > Done for angina symptoms/cath showed normal coronaries with normal LV function History of cholecystectomy History of colonoscopy History of cystoscopy History of esophagogastroduodenoscopy (EGD) History of left shoulder replacement History of nasal septoplasty History of non-cataract eye surgery History of right shoulder replacement Right TSA (08/21/19): [place] + [place] at [facility] Family History Other Family history of diabetes mellitus Social History Smoking Status: Never smoker Second Hand Exposure: Yes; Do You Dip or Chew Tobacco: Yes (1 can/day x 36 years- advised none DOS); Hx Alcohol Use: No Hx Substance Use: No Preferred Language: Khmer Communication Ability: Effective Beliefs That Will Affect Care: None marital status: Single Current Living Situation: Family Feels Safe at Home: Yes Safety Concerns: Feels Safe At This Time Assistive Devices: Denture - Upper and Denture - Lower Review of Systems All systems reviewed & are unremarkable except as noted in HPI & below. Physical Exam On physical examination of the right shoulder, he has about 110 degrees forward elevation 100 degrees of abduction. He does have a slightly palpable deformity in the anterior aspect of his shoulder. He has a positive belly press test.. Constitutional WD/WN, vitals as above Eyes PERRL, conjunctivae normal, anicteric sclerae ENMT external ear and nose normal, oropharynx normal Neck trachea midline, no thyromegaly Respiratory normal respiratory effort Cardiovascular RRR, no murmur, no edema Gastrointestinal (Abdomen) normal bowel sounds, soft, nontender, no hepatosplenomegaly Psychiatric A+Ox3, euthymic affect Results & Data Results & Data Laboratory Results . Diagnostic Findings X-rays of the right shoulder do show anterior subluxation of the humeral head on the glenoid.. PG Care Time/CCT Total # of Minutes Spent Total Time Spent with Patient: Total time spent is greater than 50% in coordination of care (as documented) at patient's floor/unit and/or counseling patient: Coding Level of Care Code None Diagnoses Rotator cuff tear, right M75.101
[~2020-11-12 08:40] MED LIST changes: +ACETAMINOPHEN 500 MG TAB PO SCH; +BUPIVACAINE 0.5 % 5 MG/1 ML PF 10ML VIAL ONE; -BUSP-8 PO; -CARI350T28 PO; -DIPH-416 PO; +FAMOTIDINE 20 MG TAB PO SCH; +GABAPENTIN 900 MG DOSE PO SCH; -LANS30CA12 PO; +LR 15ML/HR IV SCH; +LR 60ML/HR IV SCH; -METO50TA16 PO; -NTRGSL/4 UT; -PROM12.529 PO; +ROPIVACAINE 0.5% HCL/PF 150 MG, BUPIVACAINE 0.75% MPF 20 ML, EPINEPHrine 30MG/30ML (OR ... INSTIL SCH; +TRANEXAMIC ACID 1,000 MG **IV Intra-op IV SCH; +TRANEXAMIC ACID 1,000 MG **IV Pre-op IV SCH; -TRAZ100T29 PO; -VNTHFA/IN INH; +ceFAZolin 2000MG 2,000 MG/15 ML SYR IV SCH; +dexAMETHasone 4 MG TAB PO SCH
[2020-11-12] MEDS ORDERED: MIDAZOLAM HCL 1 MG/ML 2ML VIAL ONE (10:01)
[2020-11-12] MEDS ORDERED: fentaNYL citrate 100 MCG/2 ML VIAL ONE (10:01)
[2020-11-12] MEDS ORDERED: PROMETHAZINE HCL 12.5 MG in SODIUM CHLORIDE 0.9% 50 ML IV PRN (10:26)
[2020-11-12] MEDS ORDERED: fentaNYL citrate 100 MCG/2 ML VIAL IV PRN (10:26)
[2020-11-12] MEDS ORDERED: ATROPINE SULFATE 0.1 MG/ML 10ML SYR IV PRN (10:26)
[2020-11-12] MEDS ORDERED: ePHEDrine sulfate 50 MG/ML AMP IV PRN (10:26)
[2020-11-12] MEDS ORDERED: ONDANSETRON INJ 2 MG/ML 2 ML VIAL IV PRN ×2 (10:26→15:36)
[2020-11-12] MEDS ORDERED: ONDANSETRON INJ 2 MG/ML 2 ML VIAL IV STA (10:27)
[2020-11-12] MEDS ORDERED: ONDANSETRON INJ 2 MG/ML 2 ML VIAL ONE ×2 (10:28→12:03)
[2020-11-12] MEDS ORDERED: ePHEDrine sulfate 50 MG/ML AMP ONE (10:38)
--- NOTE | 2020-11-12 11:06 | History & Physical Bridge Note ---
Date of Service November 12, 2020 History & Physical Bridge Note I have examined the patient, reviewed the History & Physical and in the interval since the performance of the History & Physical I have noted the following changes of clinical significance: no changes noted
[2020-11-12] MEDS ORDERED: ORTHO JOINT ANESTHETIC ONE (11:26)
[2020-11-12] MEDS ORDERED: LIDOCAINE 2% 2 ML VIAL/AMP(20MG/ML) INFIL ONE (12:03)
[2020-11-12] MEDS ORDERED: DEXAMETHASONE SOD INJ 4 MG/ML VIAL ONE (12:03)
[2020-11-12] MEDS ORDERED: NEOSTIGMINE METHYLSULFATE 1 MG/ML 10ML VIAL ONE (12:03)
[2020-11-12] MEDS ORDERED: PHENYLEPHRINE 100MCG/ML 5ML SYR ONE (12:03)
[2020-11-12] MEDS ORDERED: GLYCOPYRROLATE 0.2 MG/ML VIAL ONE (12:04)
[2020-11-12] MEDS ORDERED: PROPOFOL IV EMULSION 10 MG/ML 20 ML VIAL IV ONE (12:04)
[2020-11-12] MEDS ORDERED: LARYING-O-JET KIT (LTA) ONE (12:04)
[2020-11-12] MEDS ORDERED: ROCURONIUM BROMIDE 10 MG/ML 5 ML VIAL IV ONE (12:04)
--- NOTE | 2020-11-12 13:38 | Operative Report ---
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 He initially did well but then symptoms worsen. X-ray showed anterior subluxation of the humeral head on the glenoid. With a positive belly press test. After failing extensive conservative treatment, he elected proceed with a conversion to a reverse shoulder arthroplasty. Description of Procedure On November 12, 2020 Abel arrived at [facility] for the above procedure. He was seen in the preoperative holding area and the operative extremity was identified and signed. He was given a preoperative antibiotic and a right interscalene nerve block. He was taken back to the operating room and laid on the table in the supine position. He was put under general anesthesia. He was put into the beachchair position. The right shoulder was prepped and draped in sterile fashion. A timeout was done. The patient and the operative extremity was properly identified. The previous deltopectoral approach was used. Dissection was taken down through the fascia and the anterior shoulder was exposed. There was a complete tear of the subscapularis. The humeral head was exposed. Significant time was spent removing all scar tissue and loosening up the shoulder. The shoulder was then dislocated. The humeral head was removed. The glenoid was then exposed. Time was spent doing a complete circumferential labral release. The glenoid was then removed in piecemeal fashion. I was able to get it removed without any significant glenoid bone loss. A guidepin was placed in the central boss hole from the previous glenoid implant. A 25 mm mini baseplate was then reamed. A 25 mm mini baseplate was then impacted into place. A single 6.5 mm central screw was placed. A superior and inferior locking screw was then placed. A 40 mm eccentric glenosphere was then impacted into place. The proximal humerus was then exposed. A +6 offset tray was then trialed. I was able to get the shoulder reduced. The shoulder had good motion. I was happy with the tensioning. There was no reason to remove the humeral stem. The shoulder was then dislocated. The standard humeral bearing was then snapped into a +6 offset humeral tray. The tray was then impacted onto the humeral stem. The shoulder was then reduced. The shoulder was brought through full range of motion and felt to be stable. The wound was then irrigated. Surrounding soft tissues were injected with 100 cc of an orthopedic pain control cocktail. A 3-minute Betadine lavage was then done. The deltopectoral interval was closed with 2-0 Vicryl. Skin was closed with 3-0 Vicryl and elvia. He was then placed in a soft dressing and a regular arm sling. He was then extubated and transferred to a [facility]. He was taken to the post anesthesia care unit in stable condition. He tolerated the procedure well. Adam Tobias PA-C, was present for the entire procedure. He was critical for patient positioning, prepping, draping, retraction exposure, wound closure and application of sterile dressing. I attest to the content of the Intraoperative Record and any orders documented therein. Any exceptions are noted below.
--- NOTE | 2020-11-12 14:42 | XRay Report ---
XR shoulder RT min 2V routine CLINICAL HISTORY: Post shoulder surgery COMPARISON STUDY: Right shoulder 08/21/2019. FINDINGS: Status post reverse right total shoulder arthroplasty. The hardware is intact. No fracture or dislocation. Skin elvia are in place. Trace right pleural effusion and mild congestive change se en within the right lung. IMPRESSION: 1. Status post reverse right total shoulder arthroplasty. 2. Mild pulmonary vascular congestion and a trace right pleural effusion noted. ACT 112: Negative or not required by law. Electronically signed by: Sp Madden M.D. 11/12/2020 2:41 PM
--- NOTE | 2020-11-12 14:50 | Anesthesiology Progress Note ---
Date of Service November 12, 2020 Anesthesia Post Procedure Vital Signs Vital Signs: Temp Pulse Pulse Resp BP Pulse Ox 11/12/20 14:40 36.3 C L 77 15 130/91 93 11/12/20 14:30 80 14 122/93 93 11/12/20 14:20 78 14 134/92 95 11/12/20 14:10 74 23 132/89 96 11/12/20 14:00 84 22 143/78 H 97 11/12/20 13:52 35.9 C L 77 16 125/83 96 11/12/20 10:05 64 20 137/93 98 11/12/20 09:35 36.6 C 57 L 20 140/104 H 97 Pain Intensity Right Shoulder: Pain Intensity: 7 Transfer of Care Handoff Completed per policy Notes Mental Status: alert / awake / arousable and participated in evaluation Patient Amnestic to Procedure: Yes Nausea / Vomiting: adequately controlled Pain: adequately controlled Airway Patency, RR, SpO2: stable & adequate BP & HR: stable & adequate Hydration State: stable & adequate Anesthetic Complications: no major complications apparent and Pt Satisfied with anesthetic care
[2020-11-12] MEDS ORDERED: PROMETHAZINE HCL 25 MG TAB PO PRN (15:36)
[2020-11-12] MEDS ORDERED: METOCLOPRAMIDE HCL INJ 5 MG/ML 2 ML VIAL IV PRN (15:36)
[2020-11-12] MEDS ORDERED: NALOXONE HCL 0.4 MG/1 ML VIAL/CARP IV PRN (15:36)
[2020-11-12] MEDS ORDERED: oxyCODONE HCL IR 5 MG TAB (IMMEDIATE RELEASE) PO PRN (15:36)
[2020-11-12] MEDS ORDERED: SODIUM CHLORIDE 0.9% 1000ML 1,000 ML IV SCH (15:36)
[2020-11-12] MEDS ORDERED: CARISOPRODOL 350 MG TABLET PO PRN (15:36)
[2020-11-12] MEDS ORDERED: NITROGLYCERIN SL 0.4 MG/TAB TAB SL PRN (15:36)
[2020-11-12] MEDS ORDERED: MAGNESIUM HYDROXIDE SUSP 30 ML UDC PO PRN (15:36)
[2020-11-12] MEDS ORDERED: HYDROmorphone INJ 0.5 MG/0.5 ML SYR IV PRN (15:36)
[2020-11-12] MEDS ORDERED: ALBUTEROL HFA 8 GM INHALER INH PRN (15:36)
[2020-11-12] MEDS ORDERED: bisacodyL 10 MG SUPP PR PRN (15:36)
[2020-11-12] MEDS: ACETAMINOPHEN 500 MG TAB PO SCH ×2 (17:20→20:07)
[2020-11-12] MEDS: ceFAZolin 2000MG 2,000 MG/15 ML SYR IV SCH (20:06)
[2020-11-12] MEDS: DOCUSATE SODIUM 100 MG CAP PO SCH (20:06)
[2020-11-12] MEDS: PANTOprazole 40 MG TAB PO SCH (20:06)
[2020-11-12] MEDS ORDERED: SENNA 8.6 MG TAB PO SCH (21:00)
[2020-11-12] MEDS ORDERED: traZODone HCL 100 MG TAB PO SCH (21:00)
[2020-11-13] MEDS: ACETAMINOPHEN 500 MG TAB PO SCH (05:12)
[2020-11-13] MEDS: ceFAZolin 2000MG 2,000 MG/15 ML SYR IV SCH (05:12)
--- NOTE | 2020-11-13 06:46 | Orthopedic Progress Note ---
Date of Service November 13, 2020 Assessment & Plan (1) Status post reverse total replacement of right shoulder: Overall is doing fairly well. Is not having much pain in the right shoulder. He will be seen by physical therapy today for ambulation and range of motion exercises. He can be discharged home later today. He will follow-up with orthopedics in 2 weeks. Kvng Roman was seen and examined at bedside this morning. Overall he is doing well. Is not any much pain in the right shoulder. He was able to get some sleep last night. He is no complaints.. Review of Systems All systems reviewed & are unremarkable except as noted in HPI & below. Physical Exam On physical examination of the right shoulder, the dressing is clean and dry. He is wearing a sling as instructed. His radial, median, and ulnar nerves are checked intact his wrist.. Results & Data Results & Data Laboratory Results . Diagnostic Findings Postoperative x-rays of the right shoulder show the prosthesis to be in anatomic alignment without any evidence of fracture, dislocation, or loosening. PG Care Time/CCT Total # of Minutes Spent Total Time Spent with Patient: Total time spent is greater than 50% in coordination of care (as documented) at patient's floor/unit and/or counseling patient: Coding Level of Care Code 53003 Post Operative Follow-Up Diagnoses Status post reverse total replacement of right shoulder Z96.611
--- NOTE | 2020-11-13 06:47 | Discharge Summary ---
Date of Service November 13, 2020 Admission HPI (Per Admitting) Abel is a 50-year-old male who underwent a right total shoulder arthroplasty in August 2019. He initially did well postoperatively. Unfortunately he has been struggling more more lately. Follow-up x-rays of the right shoulder do show full anterior subluxation of the humeral head on the glenoid. It is fairly obvious he has a large retracted subscapularis tear. After failing extensive conservative treatment, he has elected proceed with a revision to a right reverse shoulder arthroplasty.. Admission Exam (Per Admitting) On physical examination of the right shoulder, he has about 110 degrees forward elevation 100 degrees of abduction. He does have a slightly palpable deformity in the anterior aspect of his shoulder. He has a positive belly press test.. Principal Diagnosis Same as "Discharge Diagnosis" noted below under Discharge Instructions. Discharge Exam On physical examination of the right shoulder, the dressing is clean and dry. He is wearing a sling as instructed. His radial, median, and ulnar nerves are checked intact his wrist.. Discharge Data Procedures Performed Operation Date: 11/12/20 10:55 Actual Procedures p Revision Right Total Shoulder Arthroplasty to Right Reverse Total Shoulder Arthroplasty - Adam Orozco DO Ordered Studies 11/12/20 05:00 US - OR guided needle placemen Routine Hospital Course (1) Status post reverse total replacement of right shoulder: On November 12, 2020 Abel arrived at [facility] and underwent a conversion to a right reverse shoulder replacement without complication. He had a general anesthetic and a right interscalene nerve block. Postoperatively he was placed in a sling and transferred to the general orthopedic floors. His hospital course was uneventful. On postop day #1 his vital signs were stable and his pain was well controlled. He was able to participate well with physical therapy doing ambulation and range of motion exercises. He was then discharged home. He will follow-up with orthopedics in 2 weeks. PG Care Time/CCT Total # of Minutes Spent Total Time Spent with Patient: Total time spent is greater than 50% in coordination of care (as documented) at patient's floor/unit and/or counseling patient: Discharge Plan Discharge Items Patient Disposition: Home - Home Health Services Reason For Visit: Painful Right Total Shoulder Arthroplasty Discharge Diagnosis: Revision to reverse right shoulder replacement Activity: As commented below Non-emergency contact: Surgeon Call non-emergency contact if: your wound has increased redness and your wound has increased drainage Follow-up/Referrals: Denis Alves MD [Primary Care Provider] - Diet: Regular Addtl Attending Provider Instructions: Activity and Therapy Recommendations: * If you are using [facility] then therapy will be provided at your home until they feel you have accomplished all of your goals. * If you are using [facility] then Physical Therapy will be provided until they feel you are ready to start Outpatient Physical Therapy. * If you are not using home therapy then Outpatient Physical Therapy should start about 3-5 days from your day of surgery. Therapy will last about 8-12 weeks * Wear your sling for 3 weeks, unless otherwise instructed. You may remove your sling to shower and to dress, but otherwise, you should be in your sling at all times, including while sleeping * The shoulder replacement is very stable and you can use your hand while in the sling * You were shown a series of exercises in the hospital. Do these exercises daily including the exercises you were shown in physical therapy. Medications: * Narcotic You will likely be sent home from the hospital with a prescription for the narcotic pain medication that worked best throughout your stay. * Other medications may be prescribed for specific circumstances. If you have any questions, please call the office at . * Resume previous home medications unless otherwise instructed Dressing Care: Leave the Silverlon dressing in place for 7 days. After 7 days you may remove the dressing. If the incision is not draining then you may leave the elvia open to air. If there is a little bit of drainage or if the elvia are getting stuck on your clothing then cover the incision with a dry dressing. The elvia will be removed at your 2 week follow-up appointment. Showering: You may shower with the Silverlon dressing in place. Do not let the shower spray hit the dressing directly. Pat the Silverlon dressing dry. If the dressing becomes wet underneath, then simply remove the dressing. Keep t he incision dry until you are 7 days out from the day of surgery. After 7 days you may remove the Silverlon dressing and shower with the elvia exposed. Let soapy water run over the elvia and pat them dry. Do not scrub or soak the incision. Things To Watch For: * Drainage from the incision site that occurs more than one week after your surgery. * Increased redness at the incision site. * Fever above 102 degrees Fahrenheit. * Unusual chest pain or shortness of breath. * Call [facility] at with any of the above probl ems Follow-Up Visit: Follow-up with Dr. Orozco's PA (Adam Tobias) 2-3 weeks after your day of surgery. He will remove your elvia and answer any questions. If you have any additional questions or concerns, Dr Orozco is usually in the office at the same time and will be available An appointment was probably scheduled when you signed-up for surgery in the office. If you have any questions call More detailed instructions as well as Frequently Asked Questions were provided in a folder by our office when you signed-up for surgery. Please review these instructions when you get home. If you have any further questions or concerns, please feel free to call the office at [phone] Pending Studies at Discharge: No Stand-Alone Forms: [facility] Medications and DC Order Prescriptions: Continued carisoprodol 350 mg Tablet 350 mg PO TID PRN (Reason: MUSCLE SPASMS) Qty: 0 RF: 0 promethazine 12.5 mg Tablet 12.5 mg PO Q6H PRN (Reason: Nausea And Vomiting) Qty: 0 RF: 0 trazodone 100 mg Tablet 200 mg PO HS Qty: 0 RF: 0 lansoprazole 30 mg Capsule,Delayed Release(Dr/Ec) 30 mg PO BID Qty: 0 RF: 0 metoprolol tartrate 50 mg Tablet 50 mg PO QAM Qty: 0 RF: 0 nitroglycerin [Nitrostat] 0.4 mg Tablet, Sublingual 1 tab Sublingual UD PRN (Reason: Chest Pain) Qty: 0 RF: 0 albuterol sulfate 90 mcg/actuation Hfa Aerosol Inhaler 2 puff INHALATION Q4H PRN (Reason: SOB) Qty: 0 RF: 0 oxycodone-acetaminophen [Percocet] 5-325 mg tablet 1 tab PO Q6H PRN (Reason: pain) Qty: 60 RF: 0 Discharge Orders: Discharge Order (Routine); Ordered 11/13/20 Ordered By: Adam Orozco Admission Data Admit Date/Time: 11/12/20 13:54 Attending Provider: Adam Orozco Admit Provider: Adam Orozco Primary Care Provider: Denis Alves I.
[2020-11-13] MEDS: DOCUSATE SODIUM 100 MG CAP PO SCH (07:46)
[2020-11-13] MEDS: PANTOprazole 40 MG TAB PO SCH (07:51)
[2020-11-13] MEDS ORDERED: dexAMETHasone 4 MG TAB PO SCH (08:00)
[2020-11-13] MEDS ORDERED: MULTIVITAMIN TAB PO SCH (09:00)
[2020-11-13] MEDS ORDERED: METOPROLOL TARTRATE 50 MG TAB PO SCH (09:00)
--- NOTE | 2020-11-13 09:21 | Anesthesiology Progress Note ---
Date of Service November 13, 2020 Anesthesia Post Procedure Vital Signs Vital Signs: Temp Pulse Pulse Resp BP Pulse Ox 11/13/20 07:02 36.9 C 94 H 16 125/79 92 11/13/20 04:12 37.2 C 94 H 16 111/70 92 11/13/20 00:02 36.6 C 95 H 16 109/73 93 11/12/20 19:36 36.9 C 99 H 18 136/91 93 11/12/20 18:40 80 14 144/93 H 92 11/12/20 17:26 36.8 C 78 16 137/89 92 11/12/20 16:27 36.7 C 84 16 138/89 93 11/12/20 16:00 36.7 C 78 16 142/99 H 95 11/12/20 15:25 36.4 C L 87 16 135/90 93 11/12/20 15:00 81 18 132/97 93 11/12/20 14:50 36.3 C L 84 18 149/98 H 93 11/12/20 14:40 36.3 C L 77 15 130/91 93 11/12/20 14:30 80 14 122/93 93 11/12/20 14:20 78 14 134/92 95 11/12/20 14:10 74 23 132/89 96 11/12/20 14:00 84 22 143/78 H 97 11/12/20 13:52 35.9 C L 77 16 125/83 96 11/12/20 10:05 64 20 137/93 98 11/12/20 09:35 36.6 C 57 L 20 140/104 H 97 Pain Intensity Right Shoulder: Pain Intensity: 0 Notes Mental Status: alert / awake / arousable and participated in evaluation Patient Amnestic to Procedure: Yes Nausea / Vomiting: adequately controlled Pain: adequately controlled Airway Patency, RR, SpO2: stable & adequate BP & HR: stable & adequate Hydration State: stable & adequate Anesthetic Complications: no major complications apparent
== END 2020-11-13 11:03 | disposition home health service (06) | DRG 483 ==
LOC: PAT 08:40 → 3E 13:54

== ENCOUNTER 2022-01-19 05:01 | Observation (INO) ==
--- NOTE | 2021-12-23 13:56 | PAT Medication Instructions ---
Medication Instructions Date of Service December 23, 2021 Home Medications albuterol sulfate 90 mcg/actuation aerosol inhaler 2 puff INHALATION Q4H PRN carisoprodol 350 mg tablet (Soma) 350 mg PO TID PRN lansoprazole 30 mg capsule,delayed release 30 mg PO BID metoprolol tartrate 50 mg tablet 50 mg PO QAM nitroglycerin 0.4 mg sublingual tablet (Nitrostat) 1 tab SUBLINGUAL UD PRN promethazine 12.5 mg tablet 12.5 mg PO Q6H PRN trazodone 100 mg tablet 200 mg PO HS Continue as directed nitroglycerin 0.4 mg sublingual tablet (Nitrostat) 1 tab SUBLINGUAL UD PRN (if needed) DO NOT take the morning of surgery carisoprodol 350 mg tablet (Soma) 350 mg PO TID PRN Take morning of surgery With a small sip of water, OTHERWISE NOTHING TO EAT OR DRINK AFTER MIDNIGHT: albuterol sulfate 90 mcg/actuation aerosol inhaler 2 puff INHALATION Q4H PRN (use if needed; please bring rescue inhaler with you to hospital day of surgery if possible) lansoprazole 30 mg capsule,delayed release 30 mg PO BID metoprolol tartrate 50 mg tablet 50 mg PO QAM promethazine 12.5 mg tablet 12.5 mg PO Q6H PRN (if needed) Take evening before surgery albuterol sulfate 90 mcg/actuation aerosol inhaler 2 puff INHALATION Q4H PRN (if needed) carisoprodol 350 mg tablet (Soma) 350 mg PO TID PRN (if needed) lansoprazole 30 mg capsule,delayed release 30 mg PO BID promethazine 12.5 mg tablet 12.5 mg PO Q6H PRN (if needed) trazodone 100 mg tablet 200 mg PO HS Other Notes If you have any questions please call us at [phone] or [phone] or [phone] or [phone]
--- NOTE | 2021-12-24 09:09 | Anesthesiology Consultation ---
Date of Service December 24, 2021 Assessment & Plan (1) Encounter for pre-operative examination: Chart Review Chart Review: Acceptable Risk for Surgery (pending preop Covid testing results ) and Patient seen in Pre Admission Testing Succinylcholine reaction: Patient reports significant post-op mylagias with past surgeries, specifically remote shoulder shoulder. He was told that it was reaction to succinylcholine which has now been avoided for subsequent surgeries/anesthesia. He has not had similar issues with subsequent surgeries/anesthesia when succinylcholine avoided. No formal pseudocholinesterase deficiency testing. Per PAT appt on 12/24/21, patient denies any recent travel or large group activities. No known Covid positive exposures or Covid related symptoms. No known Covid infection in the past 90 days. Pt is NOT vaccinated for Covid. Preop Covid testing scheduled 01/15/22 = will await results. Educated on importance of self quarantining, social distancing and wearing mask in public for the patient one week prior to surgery and after Covid testing done Right Reverse Total Shoulder 11/12/20= Done under [place] with Grade 2 view with MAC # 3.0. ETT #8.0. Atraumatic. Hypopharynx clear. Smooth induction, atraumatic. RSI with cricoid pressure. Teaching & Discussion Pre-Anesthesia Teaching/Discussion Notes: Instructed NPO after midnight before surgery,except medications with 15 cc of water. Medication instructions provided according to the PAT guidelines. History Surgery Operation Date: 01/19/22 08:50 Proposed Procedures p Left Revision Total Shoulder Arthroplasty to Total Shoulder Arthroplasty Reverse - Adam Orozco DO Height/Weight Height: 5 ft 5 in Weight: 113.9 kg Allergies Allergy/AdvReac Type Severity Reaction Status Date / Time succinylcholine Allergy Intermediate Muscle pain Verified 12/23/21 11:52 mirtazapine AdvReac Intermediate Nightmares Verified 12/23/21 11:52 NSAIDS (Non-Steroidal AdvReac Intermediate Hx BRITTANY Verified 12/23/21 11:52 Anti-Inflamma quetiapine AdvReac Intermediate Weight gain Verified 12/23/21 11:52 Medications Home Medications Medication Instructions Recorded Confirmed Last Taken albuterol sulfate 90 mcg/actuation 2 puff INHALATION Q4H PRN #0 01/25/18 12/23/21 11/11/20 20:00 aerosol inhaler carisoprodol 350 mg tablet (Soma) 350 mg PO TID PRN #0 tab 01/25/18 12/23/21 11/11/20 20:00 lansoprazole 30 mg capsule,delayed 30 mg PO BID #0 cap 01/25/18 12/23/21 11/11/20 20:00 release metoprolol tartrate 50 mg tablet 50 mg PO QAM #0 tab 01/25/18 12/23/21 11/11/20 09:00 nitroglycerin 0.4 mg sublingual 1 tab SUBLINGUAL UD PRN #0 btl 01/25/18 12/23/21 Unknown tablet (Nitrostat) promethazine 12.5 mg tablet 12.5 mg PO Q6H PRN #0 tab 01/25/18 12/23/21 11/11/20 10:00 trazodone 100 mg tablet 200 mg PO HS #0 tab 01/25/18 12/23/21 11/11/20 20:00 oxycodone-acetaminophen 5 mg-325 1 tab PO Q6H PRN #30 tab 12/23/21 Unknown mg tablet (Percocet) Past Medical History Medical History Anxiety Asthma Controlled Barretts esophagus Blindness Right eye Chronic back pain Depression GERD (gastroesophageal reflux disease) controlled History of blood transfusion 2/2 hematuria- occurred 10 years ago History of kidney injury BRITTANY (2011) in setting of NSAID use, was on hemodialysis for short period of time > kidney function recovered/no recent issues Only follows with nephro if having issues- has not seen in several years History of kidney stones Hyperlipidemia Hypertension Morbid obesity with BMI of 40.0-44.9, adult Peripheral neuropathy B/L LE Pre-diabetes Diet controlled Scoliosis Exercise / Class Metabolic Activity III < 4 Walking/Shop/Light housework (one flight of stairs - no chest pain, mild SOB ) Past Family History Family History Other Family history of diabetes mellitus Past Surgical History Surgical History History of anesthesia reaction Succinylcholine reaction> Patient reports significant mylagias with past surgeries, specifically remote shoulder shoulder. He was told that it was reaction to succinylcholine which has now been avoided for subsequent surgeries/anesthesia. He has not had similar issues with subsequent surgeries/anesthesia when succinylcholine avoided. History of arthroscopy R/L shoulders, right knee History of cardiac cath 2008 > Done for angina symptoms/cath showed normal coronaries with normal LV function History of cholecystectomy History of colonoscopy History of cystoscopy History of esophagogastroduodenoscopy (EGD) History of left shoulder replacement History of nasal septoplasty History of non-cataract eye surgery History of right shoulder replacement Right TSA (08/21/19): [place] + PNB at [facility] Status post reverse arthroplasty of right shoulder (~10/2020) revision Past Anesthesia History No Hx of Anesthesia Complications (with exception to succylcholine reaction; did have SOB post op with past three shoulder surgeries - did NOT need reintubated- improved with oxygen (hx of asthma)) and No Family Hx of Anesthesia Complications History of PONV No Hx of PONV and No Hx of Motion Sickness Social History Smoking Status: Never smoker tobacco type: smokeless tobacco Do You Dip or Chew Tobacco: Yes (1 can/day ) Hx Alcohol Use: Yes Alcohol type: beer alcohol intake frequency: a few times a month Hx Substance Use: No substance use type: does not use Review of Systems Patient denies chest pain, shortness of breath at rest, cough, wheezing, palpitations. No hx of seizures, stroke, OK, apnea/snoring. No hx of blood clots Physical Exam Vital Signs VITALS BP 124/74 P 80 TEMP 97.7 SP02 94% RESP 16 Constitutional no acute distress ENMT Mouth: no TMJ clicking Thyromental Distance: > or= 3.5 Finger Breadths (4.0) Mallampati Class: III Full dentures on the top and bottom Neck + limited neck extension (significant ) Respiratory normal respiratory effort; no respiratory distress Auscultation: lungs clear to auscultation bilaterally; no wheezes Cardiovascular Rate/Rhythm: regular rate and regular rhythm Heart Sounds: no murmur Vessels: no carotid bruit Musculoskeletal Spine: + pain with cervical ROM Extremities: extremities normal to inspection Psychiatric Orientation: alert Lab Results Anesthesia Preop Results Results Anesthesia Widget: WBC 6.98 K/ul (4.8-10.8) 12/24/21 Hgb 13.9 g/dl (14.0-18.0) L 12/24/21 Hct 42.1 % (40.1-51.0) 12/24/21 Plt 189 K/uL (130-400) 12/24/21 Na 139 mmol/L (136-145) 12/24/21 K 3.8 mmol/L (3.5-5.1) 12/24/21 Cl 103 mmol/L (98-107) 12/24/21 CO2 31 mmol/L (21-32) 12/24/21 BUN 23 mg/dl (6-23) 12/24/21 Creat 1.00 mg/dl (0.6-1.4) 12/24/21 Glucose Level 100 mg/dl (70-99(Fasting)) H 12/24/21 PT 10.3 Seconds (9.0-12.0) 12/24/21 PTT 27.6 Seconds (21.0-31.0) 12/24/21 INR 1.0 (0.9-1.1) 12/24/21 HA1c 6.3 % (4.5-5.6) H 12/24/21 Blood Type O Positive 12/24/21 Antibody Screen NEGATIVE 12/24/21 Testing Electrocardiogram Date: 12/24/21 Findings: + NSR @ (74bpm ) and + no change from (November 05, 2020 per cardio ) Low voltage QRS. Chest X-Ray Date: 12/24/21 Findings: + NAD Mild right hemidiaphragmatic elevation. Cardiac Catheterization Date: 07/24/08 Normal coronary arteries. Normal LV systolic function.
--- NOTE | 2022-01-15 12:30 | History & Physical Report ---
Date of Service January 15, 2022 Assessment & Plan (1) Rotator cuff tear, left: We will proceed with a conversion of a left shoulder replacement to reverse shoulder arthroplasty. Postoperatively he will be placed in a sling and kept overnight for postoperative medical management. He plans to use [facility] upon discharge. History of Present Illness Chief Complaint: Failed left total shoulder arthroplasty. Primary Care Provider: Denis Alves MD Abel is a [id number] male who I did a left shoulder replacement on2017. He initially did fairly well. It has been bothering him more. He feels like his shoulder is dislocated anteriorly. He is having a lot more pain. After failing extensive conservative treatment, he has elected proceed with a left reverse shoulder arthroplasty. He does have a history of a right shoulder replacement in the past. He had anterior dislocations with that and Iconverted him to a reverse shoulder replacement on the right side. He is doing extremely well with his right reverse shoulder arthroplasty. . Allergies Allergy/AdvReac Type Severity Reaction Status Date / Time succinylcholine Allergy Intermediate Muscle pain Verified 12/23/21 11:52 mirtazapine AdvReac Intermediate Nightmares Verified 12/23/21 11:52 NSAIDS (Non-Steroidal AdvReac Intermediate Hx BRITTANY Verified 12/23/21 11:52 Anti-Inflamma quetiapine AdvReac Intermediate Weight gain Verified 12/23/21 11:52 Home Medications Medication Instructions Recorded Confirmed Type albuterol sulfate 90 mcg/actuation 2 puff inhalation Q4H PRN SOB ##0 01/25/18 12/23/21 History aerosol inhaler carisoprodol 350 mg tablet (Soma) 350 mg PO TID PRN MUSCLE SPASMS #0 01/25/18 12/23/21 History tabs lansoprazole 30 mg capsule,delayed 30 mg PO BID #0 caps 01/25/18 12/23/21 History release metoprolol tartrate 50 mg tablet 50 mg PO QAM #0 tabs 01/25/18 12/23/21 History nitroglycerin 0.4 mg sublingual 1 tab sublingual UD PRN Chest Pain 01/25/18 12/23/21 History tablet (Nitrostat) #0 BTLS promethazine 12.5 mg tablet 12.5 mg PO Q6H PRN Nausea And 01/25/18 12/23/21 History Vomiting #0 tabs trazodone 100 mg tablet 200 mg PO HS #0 tabs 01/25/18 12/23/21 History oxycodone-acetaminophen 5 mg-325 1 tab PO Q6H PRN pain #30 tabs 12/23/21 Rx mg tablet (Percocet) oxycodone 5 mg tablet 5 mg PO Q6H PRN pain #30 tabs 01/13/22 Rx Past Med/Surg History Medical History Anxiety Asthma Controlled Barretts esophagus Blindness Right eye Chronic back pain Depression GERD (gastroesophageal reflux disease) controlled History of blood transfusion 2/2 hematuria- occurred 10 years ago History of kidney injury BRITTANY (2011) in setting of NSAID use, was on hemodialysis for short period of time > kidney function recovered/no recent issues Only follows with nephro if having issues- has not seen in several years History of kidney stones Hyperlipidemia Hypertension Morbid obesity with BMI of 40.0-44.9, adult Peripheral neuropathy B/L LE Pre-diabetes Diet controlled Scoliosis Surgical History History of anesthesia reaction Succinylcholine reaction> Patient reports significant mylagias with past surgeries, specifically remote shoulder shoulder. He was told that it was reaction to succinylcholine which has now been avoided for subsequent surgeries/anesthesia. He has not had similar issues with subsequent surgeries/anesthesia when succinylcholine avoided. History of arthroscopy R/L shoulders, right knee History of cardiac cath 2008 > Done for angina symptoms/cath showed normal coronaries with normal LV function History of cholecystectomy History of colonoscopy History of cystoscopy History of esophagogastroduodenoscopy (EGD) History of left shoulder replacement History of nasal septoplasty History of non-cataract eye surgery History of right shoulder replacement Right TSA (08/21/19): [place] + PNB at [facility] Status post reverse arthroplasty of right shoulder (~10/2020) revision Family History Other Family history of diabetes mellitus Social History Smoking Status: Never smoker Second Hand Exposure: No; Hx Alcohol Use: Yes Alcohol type: beer Hx Substance Use: No Preferred Language: Bots[place] Communication Ability: Effective 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 Physical Exam On physical examination of his left shoulder, he has slightly decreased range of motion. He has positive belly press test. He has weakness with full can testing and external rotation. Pain over the glenohumeral joint line.. Constitutional WD/WN, vitals as above Eyes PERRL, conjunctivae normal, anicteric sclerae ENMT external ear and nose normal, oropharynx normal Neck trachea midline, no thyromegaly Respiratory normal respiratory effort, lungs clear to auscultation Cardiovascular RRR, no murmur, no edema Gastrointestinal (Abdomen) normal bowel sounds, soft, nontender, no hepatosplenomegaly Skin no rashes, warm and dry Psychiatric A+Ox3, euthymic affect Results & Data Results & Data Laboratory Results . Diagnostic Findings X-rays of the left shoulder show the prosthesis to be in fairly good alignment. I do not see any loosening of the components.. PG Care Time/CCT Total # of Minutes Spent Total Time Spent with Patient: Total time spent is greater than 50% in coordination of care (as documented) at patient's floor/unit and/or counseling patient: Coding Level of Care Code None Diagnoses Rotator cuff tear, left M75.102
[2022-01-19] MEDS ORDERED: LR 60ML/HR IV SCH (06:00)
[2022-01-19] MEDS ORDERED: ceFAZolin 2000MG 2,000 MG/15 ML SYR IV SCH (06:00)
[2022-01-19] MEDS ORDERED: METOCLOPRAMIDE HCL 10 MG TABLET PO SCH (06:00)
[2022-01-19] MEDS ORDERED: LR 15ML/HR IV SCH (06:00)
[2022-01-19] MEDS ORDERED: ACETAMINOPHEN 500 MG TAB PO SCH (06:00)
[2022-01-19] MEDS ORDERED: GABAPENTIN 900 MG DOSE PO SCH (06:00)
[2022-01-19] MEDS ORDERED: FAMOTIDINE 20 MG TAB PO SCH (06:00)
[2022-01-19] MEDS ORDERED: TRANEXAMIC ACID 1,000 MG **IV Intra-op IV SCH (06:00)
[2022-01-19] MEDS ORDERED: dexAMETHasone 4 MG TAB PO SCH (06:00)
[2022-01-19] MEDS ORDERED: TRANEXAMIC ACID 1,000 MG **IV Pre-op IV SCH (06:00)
[2022-01-19] MEDS ORDERED: Ketorolac (*for OR use only*) 30 MG, dexAMETHasone 4 MG, KETAMINE HCL (**OR use only) 1... INFIL SCH (06:00)
[2022-01-19] MEDS ORDERED: BUPIVACAINE 0.5 % 5 MG/1 ML PF 10ML VIAL ONE (06:21)
[2022-01-19] MEDS ORDERED: DEXAMETHASONE SOD INJ 4 MG/ML VIAL ONE ×2 (06:24→06:25)
[2022-01-19] MEDS ORDERED: ONDANSETRON INJ 2 MG/ML 2 ML VIAL ONE ×2 (06:24→06:25)
[2022-01-19] MEDS ORDERED: PROPOFOL IV EMULSION 10 MG/ML 20 ML VIAL IV ONE (06:24)
[2022-01-19] MEDS ORDERED: MIDAZOLAM HCL 1 MG/ML 2ML VIAL ONE (06:25)
[2022-01-19] MEDS ORDERED: fentaNYL citrate 100 MCG/2 ML VIAL ONE (06:25)
[2022-01-19] MEDS ORDERED: ORTHO JOINT ANESTHETIC ONE (06:31)
[2022-01-19] MEDS ORDERED: ATROPINE SULFATE 0.1 MG/ML 10ML SYR IV PRN (06:44)
[2022-01-19] MEDS ORDERED: ePHEDrine sulfate 50 MG/ML AMP IV PRN (06:44)
[2022-01-19] MEDS ORDERED: ONDANSETRON INJ 2 MG/ML 2 ML VIAL IV PRN ×2 (06:44→10:16)
--- NOTE | 2022-01-19 06:44 | History & Physical Bridge Note ---
Date of Service January 19, 2022 History & Physical Bridge Note I have examined the patient, reviewed the History & Physical and in the interval since the performance of the History & Physical I have noted the following changes of clinical significance: no changes noted
[2022-01-19] MEDS ORDERED: SUGAMMADEX SODIUM 200 MG/2 ML VIAL IV ONE (06:52)
[2022-01-19] MEDS ORDERED: ROCURONIUM BROMIDE 10 MG/ML 5 ML VIAL IV ONE (07:21)
[2022-01-19] MEDS ORDERED: GLYCOPYRROLATE 0.2 MG/ML VIAL ONE (08:17)
--- NOTE | 2022-01-19 08:24 | Operative Report ---
PG Post Operative Report Pre & Post Diagnosis Operation Date: 01/19/22 07:00 Pre-Op Diagnosis: Painful left shoulder replacement Post-Op Diagnosis: Painful left shoulder replacement I identified the patient and participated in the time-out.: Yes Procedure Operation Date: 01/19/22 07:00 Actual Procedures p Left Revision Total Shoulder Arthroplasty to reverse shoulder arthroplasty (Left) - Adam Orozco DO Surgeon Adam Orozco DO Biochemical Development Engineer Adam Tobias PA-C Estimated Blood Loss 100 Findings See Below No signs of infection, no signs of loosening. Rotator cuff was intact. Specimens None Indications Abel is a pleasant 52-year-old male who underwent a left shoulder replacement in 2018. He initially did okay but then it became a little more sore. He has a history of a right shoulder replacement with a failed subscap tear and went on to a very successful reverse shoulder arthroplasty on the right side. Infection work-up was negative. There was no signs of aseptic loosening on the left side. After failing conservative treatment he elected to proceed with a revision of his left shoulder replacement to a reverse shoulder arthroplasty. Description of Procedure On January 19, 2022 Abel arrived at [facility] for the above pro cedure. He was seen in the preoperative holding area and the operative extremity was identified and signed. He was given a preoperative antibiotic and a right interscalene nerve block. He was taken back to the operating room and laid on the table in the supine position. He was put under general anesthesia. He was put into the beachchair position. The left shoulder was prepped and draped in sterile fashion. A timeout was done. The patient and the operative extremity was properly identified. The previous deltopectoral approach was used. Dissection was taken down through the fascia and the anterior shoulder was exposed. The subscapularis was intact. There was excessive scar tissue between the subscapularis and the conjoined tendon. There was also a lot of scar tissue within the subacromial and subdeltoid space. The humeral head was exposed. Significant time was spent removing all scar tissue and loosening up the shoulder. The subscapularis was then tenotomized off the lesser tuberosity the shoulder was then dislocated. The humeral head was removed. The glenoid was then exposed. Time was spent doing a complete circumferential labral release. The glenoid was then removed in piecemeal fashion. I was able to get it removed without any significant glenoid bone loss. A guidepin was placed in the central boss hole from the previous glenoid implant. A 25 mm mini baseplate was then reamed. A 25 mm mini baseplate was then impacted into place. A single 6.5 mm central screw was placed. A superior and inferior locking screw was then placed. A 40 mm eccentric glenosphere was then impacted into place. The proximal humerus was then exposed. A +6 offset tray was then trialed. I was able to get the shoulder reduced. The shoulder had good motion. I was happy with the tensioning. There was no reason to remove the humeral stem. The shoulder was then dislocated. The standard humeral bearing was then snapped into a +6 offset humeral tray. The tray was then impacted onto the humeral stem. The shoulder was then reduced. The shoulder was brought through full range of motion and felt to be stable. The wound was then irrigated. Surrounding soft tissues were injected with 100 cc of an orthopedic pain control cocktail. A 3-minute Betadine lavage was then done. The deltopectoral interval was closed with 2-0 Vicryl. Skin was closed with 3-0 Vicryl and elvia. He was then placed in a soft dressing and a regular arm sling. He was then extubated and transferred to a [facility]. He was taken to the post anesthesia care unit in stable condition. He tolerated the procedure well. Adam Tobias PA-C, was present for the entire procedure. He was critical for patient positioning, prepping, draping, retraction exposure, wound closure and application of sterile dressing. I attest to the content of the Intraoperative Record and any orders documented therein. Any exceptions are noted below. I attest to the content of the Intraoperative Record and any orders documented therein. Any exceptions are noted below.
[2022-01-19] MEDS: fentaNYL citrate 100 MCG/2 ML VIAL IV PRN ×2 (09:20→09:25)
--- NOTE | 2022-01-19 10:03 | Anesthesiology Progress Note ---
Date of Service January 19, 2022 Anesthesia Post Procedure Vital Signs Vital Signs: Temp Pulse Pulse Resp BP Pulse Ox O2 Del Method 01/19/22 09:55 78 15 115/87 92 Nasal Cannula 01/19/22 09:45 97.7 F 78 15 102/79 92 Nasal Cannula 01/19/22 09:35 73 15 107/75 92 Nasal Cannula 01/19/22 09:25 77 18 130/92 92 Nasal Cannula 01/19/22 09:15 77 19 126/85 91 Oxymask 01/19/22 09:05 73 16 101/70 91 Oxymask 01/19/22 08:55 75 17 114/80 93 Oxymask 01/19/22 08:45 74 17 106/74 92 Oxymask 01/19/22 08:39 97.0 F L 83 14 152/103 H 92 Oxymask 01/19/22 05:27 97.5 F L 79 20 135/86 94 Room Air O2 Flow Rate 01/19/22 09:55 3 01/19/22 09:45 4 01/19/22 09:35 4 01/19/22 09:25 4 01/19/22 09:15 4 01/19/22 09:05 10 01/19/22 08:55 10 01/19/22 08:45 10 01/19/22 08:39 10 01/19/22 05:27 Pain Intensity Left Shoulder: Pain Intensity: 3 Transfer of Care Handoff Completed per policy Notes Mental Status: alert / awake / arousable and participated in evaluation Patient Amnestic to Procedure: Yes Nausea / Vomiting: adequately controlled Pain: adequately controlled Airway Patency, RR, SpO2: stable & adequate BP & HR: stable & adequate Hydration State: stable & adequate Anesthetic Complications: no major complications apparent and Pt Satisfied with anesthetic care
[2022-01-19] MEDS ORDERED: MAGNESIUM HYDROXIDE SUSP 30 ML UDC PO PRN (10:16)
[2022-01-19] MEDS ORDERED: METOCLOPRAMIDE HCL INJ 5 MG/ML 2 ML VIAL IV PRN (10:16)
[2022-01-19] MEDS ORDERED: bisacodyL 10 MG SUPP PR PRN (10:16)
[2022-01-19] MEDS ORDERED: HYDROmorphone INJ 0.5 MG/0.5 ML SYR IV PRN (10:16)
[2022-01-19] MEDS ORDERED: ALBUTEROL HFA 8 GM INHALER INH PRN (10:16)
[2022-01-19] MEDS ORDERED: NALOXONE HCL 0.4 MG/1 ML VIAL/CARP IV PRN (10:16)
[2022-01-19] MEDS ORDERED: PROMETHAZINE HCL 25 MG TAB PO PRN (10:16)
[2022-01-19] MEDS ORDERED: NITROGLYCERIN SL 0.4 MG/TAB TAB SL PRN (10:16)
[2022-01-19] MEDS: METOPROLOL TARTRATE 50 MG TAB PO SCH (10:26)
[2022-01-19] MEDS: SODIUM CHLORIDE 0.9% 1000ML 1,000 ML IV SCH ×2 (10:27→21:41)
[2022-01-19] MEDS: DOCUSATE SODIUM 100 MG CAP PO SCH ×2 (11:27→20:22)
[2022-01-19] MEDS: KETOROLAC 30 MG/ML VIAL IV SCH ×3 (11:27→22:06)
[2022-01-19] MEDS: PANTOprazole 40 MG TAB PO SCH ×2 (11:27→20:23)
[2022-01-19] MEDS: MULTIVITAMIN TAB PO SCH (11:27)
--- NOTE | 2022-01-19 11:45 | XRay Report ---
LEFT SHOULDER 2 VIEWS CLINICAL HISTORY: Postoperative examination. FINDINGS: 2 portable views of the left shoulder are compared to study dated 04/18/2018. A left should er arthroplasty is in near-anatomic alignment. No acute fracture is seen. There is chronic widening a t the left AC joint. Skin clips, subcutaneous gas, an soft tissue swelling overlying the left shoulde r are expected postoperative changes. IMPRESSION: Expected postoperative findings status post left shoulder arthroplasty. No fracture is se en. Electronically signed by: Abel Porter M.D. 01/19/2022 11:43 AM
[2022-01-19] MEDS: ACETAMINOPHEN 500 MG TAB PO SCH ×2 (14:31→22:04)
[2022-01-19] MEDS: ceFAZolin 2000MG 2,000 MG/15 ML SYR IV SCH ×2 (14:31→22:06)
[2022-01-19] MEDS: CARISOPRODOL 350 MG TABLET PO PRN ×2 (14:37→22:03)
[2022-01-19] MEDS: oxyCODONE HCL IR 5 MG TAB (IMMEDIATE RELEASE) PO PRN (20:21)
[2022-01-19] MEDS ORDERED: traZODone HCL 100 MG TAB PO SCH (21:00)
[2022-01-19] MEDS ORDERED: SENNA 8.6 MG TAB PO SCH (21:00)
[2022-01-20] MEDS: KETOROLAC 30 MG/ML VIAL IV SCH ×2 (04:05→09:36)
[2022-01-20] MEDS: ACETAMINOPHEN 500 MG TAB PO SCH (05:55)
--- NOTE | 2022-01-20 07:08 | Orthopedic Progress Note ---
Date of Service January 20, 2022 Assessment & Plan (1) Status post reverse total replacement of left shoulder: Overall he is doing well. He is not having too much pain in the left shoulder. He will be seen by physical therapy today for ambulation and range of motion exercises. He can be discharged home later today. He will follow-up with orthopedics in 2 weeks. Kvng Roman was seen and examined at bedside this morning. Overall he is doing very well. He is not having any pain in the left shoulder. He was able to get some sleep last night. He has no complaints.. Review of Systems All systems reviewed & are unremarkable except as noted in HPI & below. Physical Exam On physical examination of the left shoulder, the dressing is clean and dry. He has active motion of his hand and his wrist. He is wearing his sling as instructed.. Results & Data Results & Data Laboratory Results . Diagnostic Findings Postoperative x-rays of the left shoulder show the prosthesis to be in anatomic alignment without any evidence of fracture, screws, or loosening. PG Care Time/CCT Total # of Minutes Spent Total Time Spent with Patient: Total time spent is greater than 50% in coordination of care (as documented) at patient's floor/unit and/or counseling patient: Coding Level of Care Code 24871 Post Operative Follow-Up Diagnoses Status post reverse total replacement of left shoulder Z96.612
--- NOTE | 2022-01-20 07:09 | Discharge Summary ---
Date of Service January 20, 2022 Admission HPI (Per Admitting) Abel is a [id number] male who I did a left shoulder replacement on2017. He initially did fairly well. It has been bothering him more. He feels like his shoulder is dislocated anteriorly. He is having a lot more pain. After failing extensive conservative treatment, he has elected proceed with a left reverse shoulder arthroplasty. He does have a history of a right shoulder replacement in the past. He had anterior dislocations with that and Iconverted him to a reverse shoulder replacement on the right side. He is doing extremely well with his right reverse shoulder arthroplasty. . Admission Exam (Per Admitting) On physical examination of his left shoulder, he has slightly decreased range of motion. He has positive belly press test. He has weakness with full can testing and external rotation. Pain over the glenohumeral joint line.. Principal Diagnosis Same as "Discharge Diagnosis" noted below under Discharge Instructions. Discharge Exam On physical examination of the left shoulder, the dressing is clean and dry. He has active motion of his hand and his wrist. He is wearing his sling as instructed.. Discharge Data Procedures Performed Operation Date: 01/19/22 07:00 Actual Procedures p Left Revision Total Shoulder Arthroplasty to Total Shoulder Arthroplasty Reverse(Left) - Adam Orozco DO Ordered Studies 01/19/22 05:00 US - OR guided needle placemen Routine Hospital Course (1) Status post reverse total replacement of left shoulder: On January 19, 2022 Abel arrived at [facility] and underwent a left reverse shoulder replacement without complication. He had a general anesthetic and a left interscalene nerve block. Postoperatively he was placed in a sling and transferred to the general orthopedic floors. His hospital course was uneventful. On postop day #1, his vital signs are stable and his pain is well controlled. He was a participate well with physical therapy doing ambulation and range of motion exercises. He was then discharged home. He will follow-up with orthopedics in 2 weeks. PG Care Time/CCT Total # of Minutes Spent Total Time Spent with Patient: Total time spent is greater than 50% in coordination of care (as documented) at patient's floor/unit and/or counseling patient: Discharge Plan Discharge Items Patient Disposition: Home - Home Health Services Reason For Visit: Left Rotator Cuff Tear Discharge Diagnosis: Left reverse shoulder replacement Activity: Per Instructions section Non-emergency contact: Surgeon Call non-emergency contact if: your wound has increased redness and your wound has increased drainage Follow-up/Referrals: Denis Alves MD [Primary Care Provider] - Diet: Regular Addtl Attending Provider Instructions: Activity and Therapy Recommendations: * If you are using [facility] then therapy will be provided at your home until they feel you have accomplished all of your goals. * If you are using [facility] then Physical Therapy will be provided until they feel you are ready to start Outpatient Physical Therapy. * If you are not using home therapy then Outpatient Physical Therapy should start about 3-5 days from your day of surgery. Therapy will last about 8-12 weeks * Wear your sling for 3 weeks, unless otherwise instructed. You may remove your sling to shower and to dress, but otherwise, you should be in your sling at all times, including while sleeping * The shoulder replacement is very stable and you can use your hand while in the sling * You were shown a series of exercises in the hospital. Do these exercises daily including the exercises you were shown in physical therapy. Medications: * Narcotic You will likely be sent home from the hospital with a prescription for the narcotic pain medication that worked best throughout your stay. * Other medications may be prescribed for specific circumstances. If you have any questions, please call the office at . * Resume previous home medications unless otherwise instructed Dressing Care: Leave the Silverlon dressing in place for 7 days. After 7 days you may remove the dressing. If the incision is not draining then you may leave the elvia open to air. If there is a little bit of drainage or if the elvia are getting stuck on your clothing then cover the incision with a dry dressing. The elvia will be removed at your 2 week follow-up appointment. Showering: You may shower with the Silverlon dressing in place. Do not let the shower spray hit the dressing directly. Pat the Silverlon dressing dry. If the dressing becomes wet underneath, then simply remove the dressing. Keep the incision dry until you are 7 days out from the day of surgery. After 7 days you may remove the Silverlon dressing and shower with the elvia exposed. Let soapy water run over the elvia and pat them dry. Do not scrub or soak the incision. Things To Watch For: * Drainage from the incision site that occurs more than one week after your surgery. * Increased redness at the incision site. * Fever above 102 degrees Fahrenheit. * Unusual chest pain or shortness of breath. * Call [facility] at with any of the above problems Follow-Up Visit: Follow-up with Dr. Orozco's PA (Adam Tobias) 2-3 weeks after your day of surgery. He will remove your elvia and answer any questions. If you have any additional questions or concerns, Dr Orozco is usually in the office at the same time and will be available An appointment was probably scheduled when you signed-up for surgery in the office. If you have any questions call More detailed instructions as well as Frequently Asked Questions were provided in a folder by our office when you signed-up for surgery. Please review these instructions when you get home. If you have any further questions or concerns, please feel free to call the office at [phone] Pending Studies at Discharge: No Stand-Alone Forms: My [facility], Smoking Cessation Medications and DC Order Prescriptions: Continued carisoprodol [Soma] 350 mg Tablet 350 mg PO TID PRN (Reason: MUSCLE SPASMS) Qty: 0 promethazine 12.5 mg Tablet 12.5 mg PO Q6H PRN (Reason: Nausea And Vomiting) Qty: 0 trazodone 100 mg Tablet 200 mg PO HS Qty: 0 lansoprazole 30 mg Capsule,Delayed Release(Dr/Ec) 30 mg PO BID Qty: 0 metoprolol tartrate 50 mg Tablet 50 mg PO QAM Qty: 0 nitroglycerin [Nitrostat] 0.4 mg Tablet, Sublingual 1 tab Sublingual UD PRN (Reason: Chest Pain) Qty: 0 albuterol sulfate 90 mcg/actuation Hfa Aerosol Inhaler 2 puff INHALATION Q4H PRN (Reason: SOB) Qty: 0 oxycodone-acetaminophen [Percocet] 5-325 mg tablet 1 tab PO Q6H PRN (Reason: pain) Qty: 60 0RF Discontinued oxycodone 5 mg tablet 5 mg PO Q6H PRN (Reason: pain) Qty: 30 0RF Discharge Orders: Discharge Order (Routine); Ordered 01/20/22 Ordered By: Adam Orozco Admission Data Admit Date/Time: 01/19/22 08:41 Attending Provider: Adam Orozco Admit Provider: Adam Orozco Primary Care Provider: Denis Alves I.
[2022-01-20] MEDS: MULTIVITAMIN TAB PO SCH (07:36)
[2022-01-20] MEDS: METOPROLOL TARTRATE 50 MG TAB PO SCH (07:36)
[2022-01-20] MEDS: PANTOprazole 40 MG TAB PO SCH (07:36)
[2022-01-20] MEDS: DOCUSATE SODIUM 100 MG CAP PO SCH (07:37)
[2022-01-20] MEDS: oxyCODONE HCL IR 5 MG TAB (IMMEDIATE RELEASE) PO PRN (07:40)
[2022-01-20] MEDS ORDERED: dexAMETHasone 4 MG TAB PO SCH (08:00)
== END 2022-01-20 12:00 | disposition home or self-care (01) ==
LOC: 3E 05:01 → ASU 05:01